=== PATIENT | female | born 2005 | race Caucasian/White ===

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

== ENCOUNTER 2024-06-16 01:21 | Emergency (ER) | payer OTHER, SELFPAY ==
[2024-06-16 01:26] VITALS: BP 136/86; PULSE 79; RESP 16; TEMP 36.9; O2SAT 98; BMI 23.3
--- NOTE | 2024-06-16 01:36 | CRLHL7_ITS ---
For Patients: As a result of the Century Cures Act, medical imaging exams and procedure reports are released immediately into your electronic medical record. You may view this report before your referring provider. If you have questions, please contact your health care provider. INDICATION: Sternal chest pain. TECHNIQUE: Chest 2 views. COMPARISON: None. FINDINGS: Cardiovascular and mediastinum: Heart size and vasculature are normal in caliber and appearance. Lungs and pleural spaces: No focal consolidation, pleural effusion, or pneumothorax. Bones and soft tissues: Unremarkable for age. IMPRESSION: No evidence of an acute pulmonary process. Dictated by Nicolas Bustos MD @ 06/16/2024 2:05:16 AM (Electronically Signed)
--- OUTSIDE RECORDS SUMMARY | 2024-06-16 01:49 | XMS_ITS | Clinical Summary ---
Author Organization [facility] [facility] [place] [facility] [place] [place]ili[place] [address] Care Team Providers Care School Examiner Name Role Phone [facility] Primary Care Provider Allergies No known active allergies Active Problems Problem Noted Date Diagnosed Date BRBPR (bright red blood per rectum) 04/12/2024 Encounters Date Type Department Care Team Description 04/18/2024 8:00 AM PDT - 04/18/2024 8:30 AM PDT Surgery [place] [address] [place] [address] Abraham Leggett MD GI COLONOSCOPY(open access) 04/18/2024 8:00 AM PDT Hospital Encounter [place] [address] [place] [address] Abraham Leggett MD BRBPR (bright red blood per rectum) 04/18/2024 Collections Director Only COUNTS INCLUDE 234 BEDS AT THE [facility] [address] [place] [address] Abraham Leggett MD 04/13/2024 Refill COUNTS INCLUDE 234 BEDS AT THE [facility] [address] [place] [address] Delvis Gabriel MD, PhD Refill Request 04/12/2024 Telephone COUNTS INCLUDE 234 BEDS AT THE [facility] [address] [place] [address] Nurse, Gi, can tester/authorizat ion 04/11/2024 Transcribe Orders External [facility] Navdeep Reyes MD Hemorrhage of rectum and anus (Primary Dx) 04/09/2024 Telephone [facility] [address] [place] [address] Nurse, POOJA Juarezcan tester/authorizat ion from Last 3 Months Social History Tobacco Use Types Packs/Day Years Used Date Smoking Tobacco: Never Assessed Drug Use (DAST) Answer Date Recorded DAST Total Score Not on file 04/18/2024 Sex and Gender Information Value Date Recorded Sex Assigned at Not on file Gender Identity Not on file Sexual Orientation Not on file Plan of Treatment Health Maintenance Due Date Last Done Comments Chlamydia Screen 2004 HPV Vaccine <= 26 Yrs (3 - 2-dose series) 04/08/2016 01/09/2016, 10/09/2015 Minor 2019 Cholesterol Screening (Ages: 9-11 & 17-21) 2021 Adult 2022 Hepatitis C Screening 2022 [place] HIV Screening 2022 Influenza (#1) 2024 06/24/2022, 06/06, 06/19/2020, Additional history exists COVID-19 Vaccine ( season) 2024 01/16/2021, 12/26/2020 Tetanus (6 - Td or Tdap) 10/09/2025 016, 10/17/2008, 04/02/2005, Additional history exists Shingles Vaccine (1 of 2) 2054 10/17/2008, Pneumococcal Vaccine Aged Out 04/02/2005, 01/29/2005, 2004 No longer eligible based on patient's age to complete this topic Hep A Vaccine Series Completed 11/02/2006, 04/01/20 06 Polio Vaccine Completed 10/17/2008, 03/06, 01/29/2005, Additional history exists Meningococcal MCV4 Vaccine Aged Out 10/09/2015 N o longer eligible based on patient's age to complete this topic Procedures Procedure Name Priority Date/Time Associated Diagnosis Comments COLONOSCOPY PROCEDURE 04/18/2024 8:20 AM PDT from Last 3 Months Results * Colonoscopy Procedure (04/18/2024 8:20 AM PDT) Narrative Transcriptions Abraham Leggett MD - 04/18/2024 8:20 AM PDT [facility] Gastroenterology/Special Procedures Patient Name:nacho webb Date of :2005 Record Number:[id number] Date of Procedure:04/18/2024 Referring Physician: Endoscopist:Abraham Urbano. Endoscopist: Nurse:Ammon Ashley PROCEDURE PERFORMED Colonoscopy INDICATIONS FOR EXAMINATION rectal bleeding Instruments: 314 Medications:MAC Propofol The attending physician, Dr. Leggett, was present for the entireexamination. Procedure Technique: Patient's medications, allergies, past medical,surgical, social and family histories were reviewed and updated asappropriate. A discussion of informed consent was had with the patientand/or the patient's family prior to the procedure, including sedation. The alternatives, benefits and risks ofthe procedure including but not limited to pain, perforation, hemorrhage,infection, adverse drug reaction, missed lesion/incomplete procedure, andaspiration were discussed Description of Procedure: Based on the pre-procedure assessment, including review of the patient'smedical history, medications, allergies, and review of systems, thepatient had been deemed to be an appropriate candidate for sedation; thepatient was therefore sedated with the medications listed. The patient was monitored continuously with pulseoximetry, blood pressure monitoring, and direct observations. After digital rectal examination, the colonoscope 314 was inserted intothe rectum and advanced under direct vision to the level of the terminalileum. The quality of the colonic preparation was Excellent. A carefulinspection was made as the colonoscope was withdrawn. Findings and interventions are describedbelow. Extent of Exam: terminal ileum. Biopsy Obtained: No. Complications: . Estimated Blood Loss: Minimal. Need for Future Anesthesia: MAC. Cecal Withdrawal Time: Total Procedure Time: FINDINGS -Normal appearing colonic mucosa -Normal terminal ileum -Small internal hemorrhoids ENDOSCOPIC DIAGNOSIS -Small internal hemorrhoids -Normal appearing colonic mucosa -Normal terminal ileum RECOMMENDATIONS -Start miralax daily for constipation -use anusol topical twice daily to anal area for 7 days Signature: Abraham Leggett MD([id number]) Note: The final official report is in the [facility]. This electronic signature authenticates all electronic and/or handwrittendocumentation, including orders, generated by the signer during theepisode of care contained in this record. 04/18/2024 08:20:56 AM By Oleksandr Rosario MD Abraham Leggett MD GASTROENTEROLOGY from Last 3 Months Care Teams School Examiner Relationship Specialty Start Date End Date [facility] [id number] [place] [address] PCP - General 09/05/18
--- OUTSIDE RECORDS SUMMARY | 2024-06-16 01:49 | XMS_ITS | Encounter Summary ---
Author Organization [facility] ([place] / [place] / [place]) [place] [address] Care Team Providers Care Clinical Nutritionist Name Role Phone Terrie [facility] Primary Care Provider Reason for Visit * Reason Onset Date Comments Refill Request 04/17/2024 Encounter Details Date Type Department Care Team (Late st Contact Info) Description 04/13/2024 Refill [facility] [address] [place], [place] [address] Delvis Gabriel MD, PhD [address] [place], [place] [id number] Refill Request Social History Tobacco Use Types Packs/Day Years Used Date Smoking Tobacco: Never Assessed Drug Use (DAST) Answer Date Recorded DAST Total Score Not on file 04/18/2024 Sex and Gender Information Value Date Recorded Sex Assigned at Not on file Gender Identity Not on file Sexual Orientation Not on file documented as of this encounter Miscellaneous Notes * Telephone Encounter - Em Hawley - 04/17/2024 5:03 PM PDT Called patient to reschedule procedure to new location in [place] due to MD changes. Patient accepted 7am check in at [place]. Prep instructions for the patients upcoming procedure have been sent via email. No further assistance required at this time. Email was verified. * Telephone Encounter - Leisa Mansfield, COMMUNICATIONS SUPERVISOR - 04/13/2024 1:18 PM PDT Is the patient requesting a low volume prep yes Moviprep pended and routed for provider review and approval/denial * Telephone Encounter - Christina Watson - 04/13/2024 12:11 PM PDT Reviewed allergies listed in banner with the patient: yes Do you have any additional known allergies to over the counter or prescription medications? No Are you allergic to latex? No Patient is scheduled on 04/18/[address] Gabriel. Please pend order for bowel prep and route to provider for review. Is the patient requesting a low volume prep yes - Patient's preferred pharmacy: [id number] [id number] [facility] [id number] [place] [phone] documented in this encounter Plan of Treatment Not on file documented as of this encounter Visit Diagnoses Diagnosis BRBPR (bright red blood per rectum)- Primary Hemorrhage of rectum and anus documented in this encounter Care Teams Clinical Nutritionist Relationship Specialty Start Date End Date [facility] [address] [place], [place] [id number] PCP - General 09/05/18 documented as of this encounter
--- OUTSIDE RECORDS SUMMARY | 2024-06-16 01:49 | XMS_ITS | Encounter Summary ---
Author Organization [facility] ([place] / [place] / [place]) [place] Affili[place] [address] Care Team Providers Care Substation Design Draftsperson Name Role Phone Boot[facility] Primary Care Provider Encounter Details Date Type Department Care Team (Late st Contact Info) Description 04/18/2024 Advertising Specialist Only [facility] [address] [place] [address] Abraham Leggett MD [address] # [id number] [place] [phone] Social History Tobacco Use Types Packs/Day Years Used Date Smoking Tobacco: Never Assessed Drug Use (DAST) Answer Date Recorded DAST Total Score Not on file 04/18/2024 Sex and Gender Information Value Date Recorded Sex Assigned at Not on file Gender Identity Not on file Sexual Orientation Not on file documented as of this encounter Procedure Notes * Abraham Leggett MD - 04/18/2024 8:20 AM PDTAssociated Order(s): COLONOSCOPY PROCEDURE [facility] Gastroenterology/Special Procedures Patient Name:nacho webb Date of :2005 Record Number:[id number] Date of Procedure:04/18/2024 Referring Physician: Endoscopist:Abraham Urbano. Endoscopist: Nurse:Ammon Ashley PROCEDURE PERFORMED Colonoscopy INDICATIONS FOR EXAMINATION rectal bleeding Instruments: 314 Medications:MAC Propofol The attending physician, Dr. Leggett, was present for the entire examination. Procedure Technique: Patient's medications, allergies, past medical, surgical, social and family histories were reviewed and updated as appropriate. A discussion of informed consent was had with the patient and/or the patient's family prior to the procedure, including sedation. The alternatives, benefits and risks of the procedure including but not limited to pain, perforation, hemorrhage, infection, adverse drug reaction, missed lesion/incomplete procedure, and aspiration were discussed Description of Procedure: Based on the pre-procedure assessment, including review of the patient's medical history, medications, allergies, and review of systems, the patient had been deemed to be an appropriate candidate forsedation; the patient was therefore sedated with the medications listed. The patient was monitored continuously with pulse oximetry, blood pressure monitoring, and direct observations. After digital rectal examination, the colonoscope 314 was inserted into the rectum and advanced under direct vision to the level of the terminal ileum. The quality of the colonic preparation was Excellent. A careful inspection was made as the colonoscope was withdrawn. Findings and interventions are described below. Extent of Exam: terminal ileum. Biopsy Obtained: [...] area for 7 days Signature: Abraham Leggett MD ([id number]) Note: The final official report is in the [facility] medical record. This electronic signature authenticates all electronic and/or handwritten documentation, including orders, generated by the signer during the episode of care contained in this record. 04/18/2024 08:20:56 AM By Oleksandr Rosario MD documented in this encounter Plan of Treatment Not on file documented as of this encounter Procedures Procedure Name Priority Date/Time Associated Diagnosis Comments COLONOSCOPY PROCEDURE 04/18/2024 8:20 AM PDT documented in this encounter Results * Colonoscopy Procedure (04/18/2024 8:20 AM PDT) Narrative Transcriptions Abraham Leggett MD - 04/18/2024 8:20 AM PDT [facility] Gastroenterology/Special Procedures Patient Name:nacho webb Date of :2005 Record Number:[id number] Date of Procedure:04/18/2024 Referring Physician: Endoscopist:Abraham Urbano. [...] area for 7 days Signature: Abraham Leggett MD([id number]) Note: The final official [facility]. This electronic signature authenticates all electronic and/or handwrittendocumentation, including orders, generated by the signer during theepisode of care contained in this record. 04/18/2024 08:20:56 AM By Oleksandr Rosario MD Abraham Leggett MD GASTROENTEROLOGY documented in this encounter Visit Diagnoses Not on filedocumented in this encounter Care Teams Substation Design Draftsperson Relationship Specialty Start Date End [facility] [address] [place] [address] PCP - General 09/05/18 documented as of this encounter
--- OUTSIDE RECORDS SUMMARY | 2024-06-16 01:49 | XMS_ITS | Encounter Summary ---
Author Organization [facility] ([place] / [place] / [place]) [place] [address] Care Team Providers Care Mineral Ore Processing Labourer Name Role Phone Terrie [facility] Primary Care Provider Reason for Visit * Auth/Cert (Routine) Specialty Diagnoses / Procedures Referred By Heraclio t Referred To Contact Diagnoses BRBPR (bright red blood per rectum) blood per rectum Procedures PB COLONOSCOPY,DIAGNOSTIC PB COLONOSCOPY,BIOPSY PB ANESTHESIA LOWER INTST ENDOSCOPIC PX NOS GI COLONOSCOPY [facility] [address] [place] [address] Phone: [phone] Referral ID Status Reason Start Date Expiration Date Visits Re quested Visits Authorized [id number] 1 1 Encounter Details Date Type Department Care Team (Late st Contact Info) Description 04/18/2024 8:00 AM PDT - 04/18/2024 8:30 AM PDT Surgery [facility] [address] [place] [address], [address] [place] [address] Abraham Leggett MD [address] # [id number] [place] [address] GI COLONOSCOPY(open access) Social History Tobacco Use Types Packs/Day Years Used Date Smoking Tobacco: Never Assessed Drug Use (DAST) Answer Date Recorded DAST Total Score Not on file 04/18/2024 Sex and Gender Information Value Date Recorded Sex Assigned at Not on file Gender Identity Not on file Sexual Orientation Not on file documented as of this encounter H&P Notes * Abraham Leggett MD - 04/18/2024 6:54 AM PDT History and Physical Indication for procedure: rectal bleeding No past medical history on file. No past surgical history on file. No Known Allergies Cannot display prior to admission medications because the patient has not been admitted in this contact. There were no vitals taken for this visit. General: Well developed, well nourished, in no apparent distress. Lungs: Clear breath sounds bilaterally. CV: Normal rate, regular rhythm, no significant murmur present. Abdomen: Soft, nontender, normal bowel sounds present. ASA Score: 1 Airway (Mallimpati) Score: Class I - Soft palate, uvula, fauces, and pillars are visible. Assessment and Plan Proceed to planned procedure. The patient has consented to the procedure, which will be done with sedation. I have assessed the patient's status immediately prior to this procedure. I have discussed pain management needs and options for the patient with the patient or caregiver. The patient agrees to be full code for the duration of the procedure. Sedation options, risks, and plans have been discussed with the patient or caregiver. Questions were answered. The patient or caregiver agrees to proceed as planned. Abraham Leggett documented in this encounter Plan of Treatment Not on file documented as of this encounter Visit Diagnoses Diagnosis BRBPR (bright red blood per rectum)- Primary Hemorrhage of rectum and anus BRBPR (bright red blood per rectum) Hemorrhage of rectum and anus documented in this encounter Admitting Diagnoses Diagnosis BRBPR (bright red blood per rectum) Hemorrhage of rectum and anus documented in this encounter Care Teams Mineral Ore Processing Labourer Relationship Specialty Start Date End Date [facility] [address] [place] [address] PCP - General 09/05/18 documented as of this encounter
--- OUTSIDE RECORDS SUMMARY | 2024-06-16 01:49 | XMS_ITS | Encounter Summary ---
Author Organization [facility] ([place] / [place] / [place]) [place] [address] Care Team Providers Care Linotypist Name Role Phone Terrie [facility] Primary Care Provider Reason for Visit * Auth/Cert (Routine) Specialty Diagnoses / Procedures Referred By Heraclio t Referred To Contact Diagnoses BRBPR (bright red blood per rectum) blood per rectum Procedures PB COLONOSCOPY,DIAGNOSTIC PB COLONOSCOPY,BIOPSY PB ANESTHESIA LOWER INTST ENDOSCOPIC PX NOS GI COLONOSCOPY [facility] [address] [place] [address] Phone: [phone] Referral ID Status Reason Start Date Expiration Date Visits Re quested Visits Authorized [id number] 1 1 Encounter Details Date Type Department Care Team (Latest Contact Info) Description 04/18/2024 8:00 AM PDT Hospital Encounter [address], [address] [place] [address] Abraham Leggett MD [address] # [id number] [place] [phone] BRBPR (bright red blood per rectum) Social History Tobacco Use Types Packs/Day Years [...] anus documented in this encounter Care Teams Linotypist Relationship Specialty Start Date End Date [place] [address] [place] [address] PCP - General 09/05/18 documented as of this encounter
--- OUTSIDE RECORDS SUMMARY | 2024-06-16 01:50 | XMS_ITS | Encounter Summary ---
Author Organization [facility] ([place] / [place] / [place]) [place] [address] Care Team Providers Care Professor Of Theater Name Role Phone [facility] Primary Care Provider Reason for Referral * Physician (Routine) - Authorized Specialty Diagnoses / Procedures Referred By Heraclio duckworth Referred To Contact GASTRO Diagnoses Hemorrhage of rectum and anus Procedures PB OFFICE/OUTPT VISIT,KEITH ANDRADE Hung T, [place] [address] [facility] [address] [place] [address] Referral ID Status Reason Start Date Expiration Date Visits Requested Visits Authorized [id number] Authorized Consult W/ Recommendation 04/11/2024 04/11/2025 1 1 Question Answer Indications: Clinic consult Related to a recent hospital discharge? (If Yes, Change status to Stat) No Appointment time frame: 1st Available Colon Screening: No Appointment for: General GI Encounter Details Date Type Department Care Team (Latest Contact Info) Description 04/11/2024 Transcribe Orders External [facility] [place] [address] Hemorrhage of rectum and anus (Primary Dx) Social History Tobacco Use Types Packs/Day Years Used Date Smoking Tobacco: Never Assessed Drug Use (DAST) Answer Date Recorded DAST Total Score Not on file 04/12/2024 Sex and Gender Information Value Date Recorded Sex Assigned at Not on file Gender Identity Not on file Sexual Orientation Not on file documented as of this encounter Plan of Treatment Scheduled Referrals Name Type Priority Associated Diagnoses Orde r Schedule Consult/Referral to Gastroenterology Referral Routine Hemorrhage of rectum and anus Ordered: 04/11/2024 documented as of this encounter Visit Diagnoses Diagnosis Hemorrhage of rectum and anus- Primary documented in this encounter Care Teams Professor Of Theater Relationship Specialty Start Date End Date Terrie [facility] [address] [place] [address] PCP - General 09/05/18 documented as of this encounter
--- OUTSIDE RECORDS SUMMARY | 2024-06-16 01:50 | XMS_ITS | Encounter Summary ---
Author Organization [facility] ([place] / [place] / [place]) [place] [address] Care Team Providers Care Animal Geneticist Name Role Phone Terrie [facility] Primary Care Provider Reason for Visit * Reason Onset Date Comments Referral/authorization 04/12/2024 Encounter Details Date Type Department Care Team (Late st Contact Info) Description 04/12/[address] [place] [address] Nurse, Gi, auction assistant/authorization Social History Tobacco Use Types Packs/Day Years Used Date Smoking Tobacco: Never Assessed Drug Use (DAST) Answer Date Recorded DAST Total Score Not on file 04/12/2024 Sex and Gender Information Value Date Recorded Sex Assigned at Not on file Gender Identity Not on file Sexual Orientation Not on file documented as of this encounter Miscellaneous Notes * Telephone Encounter - Sean Duarte - 04/13/2024 9:27 AM PDT First attempt. Artera message sent. When the patient calls back, please assist with scheduling as triaged. Thank you. * Telephone Encounter - Delvis Gabriel MD, PhD - 04/12/2024 4:58 PM PDT East, [facility], [facility] ([place]), [facility]. Urgent 0-8 weeks. * Telephone Encounter - Brandi Albarado RN - 04/12/2024 3:51 PM PDT Images from the original note were not included. Routing to for review and to advise on scheduling (Colonoscopy w/ MAC pended) Young age Routine external clinic referral from Dr.Hung Reyes for BRBPR 04/11/24 GI Referral (media) * Telephone Encounter - Nia Do - 04/12/2024 3:24 PM PDT Received GI clinical referral on 04/[address] Reyes for Hemorrhage of rectum and anus. Unable to locate diagnosis in [employer]. Please review and advise for scheduling. Thank you. documented in this encounter Plan of Treatment Not on file documented as of this encounter Visit Diagnoses Diagnosis BRBPR (bright red blood per rectum)- Primary Hemorrhage of rectum and anus documented in this encounter Care Teams Animal Geneticist Relationship Specialty Start Date End Date [facility] [address] [place] [address] PCP - General 09/05/18 documented as of this encounter
--- OUTSIDE RECORDS SUMMARY | 2024-06-16 01:50 | XMS_ITS | Continuity of Care Document ---
Author Name [facility] Organization [facility] Care Team Providers Care Teller Name Role Phone [facility] Unavailable Unavailable Problems Combined list of problems from Department of Defense and Veterans Affairs facilities. It does not include entries that were removed or entered in error. Problem Status Onset Date Problem Type Date of Resolution Comments Source Encounter for insertion of intrauterine contraceptive device Active 04/30/2024 Diagnosis 0232C-[facility] Left Ankle pain Active 03/05/2019 Condition Amb ulatory Pharmacy Pain in right knee Active 08/10/2018 Condition DoD Acne Active Condition Ambulatory Pharmacy Blood per rectum Active Condition Ambul [facility]ory Pharmacy COVID-19 Active Condition DoD Rheumatoid arthritis Active Condition Ambulatory Pharmacy Convergence insufficiency Active Condition DoD Medications Combined list of outpatient medications from Department of Defense and Veterans Affairs facilities.Medications provided include 1) outpatient medications from the last 15 months, and 2) patient-reported medications. Medication Details Route Status Patient Instructions Prescription Expires Prescription Number Last Dispense Date Ordering Provider Order Date Order Qty Source Afrin 0.05% nasal spray 2 spray(s) , Nostril- Both, BID, Do not use for longer than 72 hours, # 15 mL, 0 total refill(s ), Acute, 2 spray(s) Nostril- Both BID,Inst r:Do not use for longer than 72 hours, Pharmacy : [facility] Nostri l-Both (into the nose) Complet ed 01/22/2022 15.0 0232C[facility] Claritin-D 24 Hour oral tablet, extended release 1 tab(s), Oral, Daily, # 15 tab(s), 0 total refill(s ), Acute, 1 tab(s) Oral Daily, Pharmacy : [facility] Oral (given by mouth) Complet ed 01/22/2022 15.0 0232C[facility] clindamycin phosphate-b enzoyl peroxide 1.2%-5% topical gel clindamy aliyah phosphat e-benzoy l peroxide 1.2%-5% topical gel Start Date: 05/19/20 Stop Date: 02/25/23 Status: Complete d Complet ed 02/25/2023 No Facilit y Access clindamycin -benzoyl peroxide 1.2%-5% with emollients topical kit See Instruct ions, Topical Daily, # 1 EA, 3 total refill(s ), Maintena nce, Topical Daily, Pharmacy : [facility] Complet ed 08/12/2023 1.0 0232[facility] FOLIC ACID (U/D) 1 MG ORAL TAB Active 11/23/2024 [id number] 4 [facility] 1 mg oral tablet 1 tab(s), Oral, Daily, # 90 tab(s), 3 total refill(s ), Maintena nce, 1 tab(s) Oral Daily, Pharmacy : [facility] Oral (given by mouth) Ordered 90.0 0232C[facility] folic acid 1 mg oral tablet folic acid 1 mg oral tablet Start Date: 09/13/19 Stop Date: 07/20/21 Status: Complete d Complet ed 07/20/2021 No Facilit y Access folic acid 1 mg tablet 1 mg, Oral, Daily, # 90 EA, 0 total refill(s ), Hard Stop Oral (given by mouth) Discont inued 04/30/2024 90.0 Ambulat ory Pharmac y ibuprofen 600 mg oral tablet 1 tab(s), Oral, every 6 hr, # 40 tab(s), 0 total refill(s ), Acute, 08/10/21 2:00:00 AM THERMOSTAT MAKER, 1 tab(s) Oral every 6 hr, Pharmacy : [facility] Oral (given by mouth) Complet ed 08/10/2021 40.0 0029C-N [facility] Kurvelo 0.15 mg-30 mcg oral tablet 1 tab(s), Oral, Daily, # 168 tab(s), 1 total refill(s ), Maintena nce, 1 tab(s) Oral Daily, Pharmacy : [facility] Oral (given by mouth) Discont inued 04/30/2024 168.0 0232C[facility] leucovorin 5 mg tablet See Rx Instruct ions, # 10 EA, 4 total refill(s ), Hard Stop Complet ed 10/07/2023 10.0 Ambulat ory Pharmac y metHOTREXat e (U/D) 2.5 MG ORAL TAB Do not drink alcohol. Avoid exposure to sun.Take or use exactly as directed .Obtain advice for OTCs.Do not take if . Active 08/01/2024 [id number] 2023 32 [facility] methotrexat e 2.5 mg oral tablet methotre xate 2.5 mg oral tablet Start Date: 12/20/19 Stop Date: 02/25/21 Status: Complete d Complet ed 02/25/2021 No Facilit y Access methotrexat e 2.5 mg tablet See Instruct ions, # 32 EA, 8 total refill(s ), Hard Stop Discont inued 04/30/2024 32.0 Ambulat ory Pharmac y methotrexat e 2.5 mg tablet See Instruct ions, # 96 EA, 0 total refill(s ), Hard Stop, ELSIE Complet ed 05/19/2024 96.0 Ambulat ory Pharmac y Mucinex 600 mg oral tablet, extended release 1 tab(s), Oral, every 12 hr, # 20 tab(s), 0 total refill(s ), Acute, 01/22/22 2:00:00 AM CDT, 1 tab(s) Oral every 12 hr, Pharmacy : [facility] Oral (given by mouth) Complet ed 01/22/2022 20.0 0232[facility] oxyCODONE 5 mg oral tablet 1 tab(s), Oral, every 6 hr, PRN pain, # 10 tab(s), 0 total refill(s ), Acute, 08/03/21 2:00:00 AM THERMOSTAT MAKER, 1 tab(s) Oral every 6 hr,PRN:a s needed for pain, Pharmacy : [facility] Oral (given by mouth) Complet ed 08/03/2021 10.0 0029C-N [facility] Peridex 0.12% mucous membrane liquid 15 mL, Oral, BID, swish and spit; do not swallow, # 473 mL, 0 total refill(s ), Maintena nce, 15 mL Oral BID,Inst r:swish and spit; do not swallow, Pharmacy : [facility] Oral (given by mouth) Complet ed 03/09/2022 473.0 0029C-N [facility] predniSONE 50 mg oral tablet 1 tab(s), Oral, Daily, # 5 tab(s), 0 total refill(s ), Maintena nce, 1 tab(s) Oral Daily,x5 days, Pharmacy : [facility] Oral (given by mouth) Complet ed 03/09/2022 5.0 0029A-[facility] tretinoin 0.025% topical cream tretinoi n 0.025% topical cream Start Date: 06/26/20 Stop Date: 02/25/23 Status: Complete d Complet ed 02/25/2023 No Facilit y Access Tylenol 325 mg oral tablet 2 tab(s), Oral, every 6 hr, PRN pain or fever, # 60 tab(s), 0 total refill(s ), Acute, 08/10/21 2:00:00 AM THERMOSTAT MAKER, 2 tab(s) Oral every 6 hr,PRN:a s needed for pain or fever, Pharmacy : [facility] Oral (given by mouth) Complet ed 08/10/2021 60.0 0029C-N [facility] Allergies, Adverse Reactions, Alerts Combined list of allergies from Department of Defense and Veterans Affairs facilities. It does not include entries that were removed or entered in error. Substance Category Reaction Severity Reaction type Status Date Reported Comments Source No Known Allergies Drug allergy (disorder) active 02/26/2023 DoD Immunizations Combined list of available immunizations from the Department of Defense and Veterans Affairs facilities. 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 Contractor Status Comments Source meningococcal conjugate vaccine 2020 RAINER Graves speedy, right (delt oid) [id number] sanofi pasteur complet ed meningoco ccal conjugate vaccine 02/26/21 [facility] Human Papillomaviru s,quadrivalen t(HPV4) 2015 zzLef t Arm [id number] [employer] Inc complet ed Human Papilloma virus,amairani drivalent (HPV4) 01/09/16 Given Ambulat ory Pharmac y human papilloma virus vaccine, quadrivalent 2 2015 Unknown, Provider [id number] Merck (MSD) complet ed human papilloma virus vaccine, quadrival ent DoD influenza, injectable, quadrivalent- pf 2015 zzLef t Arm [id number] GlaxoSmithKli ne complet ed influenza , injectabl e, quadrival ent-pf 10/09/15 Given Ambulat ory Pharmac y tetanus, diphtheria, acellular pertu is 2015 zzRig ht Arm [id number] GlaxoSmithK[employer] ne complet ed tetanus, diphtheri a, acellular pertussis 10/09/15 Given Ambulat ory Pharmac y meningococcal A,C,Y,W-135 (MCV4P) 2015 zzLef t Arm [id number] sanofi pasteur complet ed meningoco ccal A,C,Y,W-1 35 (MCV4P) 10/09/15 Given Ambulat ory Pharmac y Human Papillomaviru s,quadrivalen t(HPV4) 2015 zzRig ht Arm [id number] Merck [employer] Company Inc complet ed Human Papilloma virus,amairani drivalent (HPV4) 10/09/15 Given Ambulat ory Pharmac y human papilloma virus vaccine, quadrivalent 1 2015 Unknown, Provider [id number] Merck (MSD) complet ed human papilloma virus vaccine, quadrival ent DoD meningococcal polysaccharid e (groups A, C, Y and W-135) diphtheria toxoid conjugate vaccine (MCV4P) 1 2015 Unknown, Provider [id number] Sanofi Pasteur (PMC) complet ed meningoco ccal polysacch aride (groups A, C, Y and W-135) diphtheri a toxoid conjugate vaccine (MCV4P) DoD tetanus toxoid, reduced diphtheria toxoid, and acellular pertu is vaccine, adsorbed 1 2015 Unknown, Provider [id number] [facility] ([facility]) complet ed tetanus toxoid, reduced diphtheri a toxoid, and acellular pertussis vaccine, adsorbed DoD Influenza, injectable, quadrivalent, preservative free 1 2015 Unknown, Provider [id number] [address] [place] [address] (ELLIOTT) complet ed Influenza , injectabl e, quadrival ent, preservat alvaro free DoD DTaP 2008 Transcr ibed 20 complet ed DTaP 10/17/08 Given Ambulat ory Pharmac y poliovirus vaccine, inactivated 2008 Transcr ibed 10 complet ed polioviru s vaccine, inactivat ed 10/17/08 Given Ambulat ory Pharmac y measles/mumps /rubella virus vaccine 2008 Transcr ibed 03 complet ed measles/m umps/rube lla virus vaccine 10/17/08 Given Ambulat ory Pharmac y varicella virus vaccine 2008 GINA 21 complet ed varicella virus vaccine 10/17/08 Recorded 0232C-N [facility] measles, mumps and rubella virus vaccine 2 2008 Unknown, Provider Transcr ibed 03 Transcribed (TRS) complet ed measles, mumps and rubella virus vaccine DoD poliovirus vaccine, inactivated 4 2008 Unknown, Provider Transcr ibed 10 Transcribed (TRS) complet ed polioviru s vaccine, inactivat ed DoD diphtheria, tetanus toxoids and acellular pertu is vaccine 4 2008 Unknown, Provider Transcr ibed 20 Transcribed (TRS) complet ed diphtheri a, tetanus toxoids and acellular pertussis vaccine DoD Hep A, ped/adol, 2 dose 2006 Transcr ibed 83 complet ed Hep A, ped/adol, 2 dose 11/02/06 Given Ambulat ory Pharmac y hepatitis A vaccine, pediatric/ado lescent dosage, 2 dose schedule 2 2006 Unknown, Provider Transcr ibed 83 Transcribed (TRS) complet ed hepatitis A vaccine, pediatric /adolesce nt dosage, 2 dose schedule DoD Hep A, ped/adol, 2 dose 2005 Transcr ibed 83 complet ed Hep A, ped/adol, 2 dose 04/01/06 Given Ambulat ory Pharmac y hepatitis A vaccine, pediatric/ado lescent dosage, 2 dose schedule 1 2005 Unknown, Provider Transcr ibed 83 Transcribed (TRS) complet ed hepatitis A vaccine, pediatric /adolesce nt dosage, 2 dose schedule DoD measles/mumps /rubella virus vaccine 2005 Transcr ibed 03 complet ed measles/m umps/rube lla virus vaccine 10/05/05 Given Ambulat ory Pharmac y varicella virus vaccine 2005 Transcr ibed 21 complet ed varicella virus vaccine 10/05/05 Given Ambulat ory Pharmac y measles, mumps and rubella virus vaccine 1 2005 Unknown, Provider Transcr ibed 03 Transcribed (TRS) complet ed measles, mumps and rubella virus vaccine DoD varicella virus vaccine 1 2005 Unknown, Provider Transcr ibed 21 Transcribed (TRS) complet ed varicella virus vaccine DoD hepatitis B vaccine, unspecified formul 2004 Transcr ibed 45 complet ed hepatitis B vaccine, unspecifi ed formul 04/02/05 Given Ambulat ory Pharmac y DTaP 2004 Transcr ibed 20 complet ed DTaP 04/02/05 Given Ambulat ory Pharmac y Hib, unspecified formulation 2004 Transcr ibed 17 complet ed Hib, unspecifi ed formulati on 04/02/05 Given Ambulat ory Pharmac y poliovirus vaccine, inactivated 2004 Transcr ibed 10 complet ed polioviru s vaccine, inactivat ed 04/02/05 Given Ambulat ory Pharmac y pneumococcal 13-valent conjugate (PCV13) 2004 Transcr ibed 133 complet ed pneumococ maria eugenia 13-valent conjugate (PCV13) 04/02/05 Given Ambulat ory Pharmac y poliovirus vaccine, inactivated 3 2004 Unknown, Provider Transcr ibed 10 Transcribed (TRS) complet ed polioviru s vaccine, inactivat ed DoD Haemophilus influenzae type b vaccine, conjugate unspecified formulation 3 2004 Unknown, Provider Transcr ibed 17 Transcribed (TRS) complet ed Haemophil us influenza e type b vaccine, conjugate unspecifi ed formulati on DoD diphtheria, tetanus toxoids and acellular pertu is vaccine 3 2004 Unknown, Provider Transcr ibed 20 Transcribed (TRS) complet ed diphtheri a, tetanus toxoids and acellular pertussis vaccine DoD hepatitis B vaccine, unspecified formulation 3 2004 Unknown, Provider Transcr ibed 45 Transcribed (TRS) complet ed hepatitis B vaccine, unspecifi ed formulati on DoD pneumococcal conjugate vaccine, 13 valent 3 2004 Unknown, Provider Transcr ibed 133 Transcribed (TRS) complet ed pneumococ maria eugenia conjugate vaccine, 13 valent DoD DTaP 2004 Transcr ibed 20 complet ed DTaP 01/29/05 Given Ambulat ory Pharmac y Hib, unspecified formulation 2004 Transcr ibed 17 complet ed Hib, unspecifi ed formulati on 01/29/05 Given Ambulat ory Pharmac y poliovirus vaccine, inactivated 2004 Transcr ibed 10 complet ed polioviru s vaccine, inactivat ed 01/29/05 Given Ambulat ory Pharmac y pneumococcal 13-valent conjugate (PCV13) 2004 Transcr ibed 133 complet ed pneumococ maria eugenia 13-valent conjugate (PCV13) 01/29/05 Given Ambulat ory Pharmac y poliovirus vaccine, inactivated 2 2004 Unknown, Provider Transcr ibed 10 Transcribed (TRS) complet ed polioviru s vaccine, inactivat ed DoD Haemophilus influenzae type b vaccine, conjugate unspecified formulation 2 2004 Unknown, Provider Transcr ibed 17 Transcribed (TRS) complet ed Haemophil us influenza e type b vaccine, conjugate unspecifi ed formulati on DoD diphtheria, tetanus toxoids and acellular pertu is vaccine 2 2004 Unknown, Provider Transcr ibed 20 Transcribed (TRS) complet ed diphtheri a, tetanus toxoids and acellular pertussis vaccine DoD pneumococcal conjugate vaccine, 13 valent 2 2004 Unknown, Provider Transcr ibed 133 Transcribed (TRS) complet ed pneumococ maria eugenia conjugate vaccine, 13 valent DoD DTaP 2004 Transcr ibed 20 complet ed DTaP 04 Given Ambulat ory Pharmac y Hib, unspecified formulation 2004 Transcr ibed 17 complet ed Hib, unspecifi ed formulati on 04 Given Ambulat ory Pharmac y poliovirus vaccine, inactivated 2004 Transcr ibed 10 complet ed polioviru s vaccine, inactivat ed 04 Given Ambulat ory Pharmac y pneumococcal 13-valent conjugate (PCV13) 2004 Transcr ibed 133 complet ed pneumococ maria eugenia 13-valent conjugate (PCV13) 04 Given Ambulat ory Pharmac y poliovirus vaccine, inactivated 1 2004 Unknown, Provider Transcr ibed 10 Transcribed (TRS) complet ed polioviru s vaccine, inactivat ed DoD Haemophilus influenzae type b vaccine, conjugate unspecified formulation 1 2004 Unknown, Provider Transcr ibed 17 Transcribed (TRS) complet ed Haemophil us influenza e type b vaccine, conjugate unspecifi ed formulati on DoD diphtheria, tetanus toxoids and acellular pertu is vaccine 1 2004 Unknown, Provider Transcr ibed 20 Transcribed (TRS) complet ed diphtheri a, tetanus toxoids and acellular pertussis vaccine DoD pneumococcal conjugate vaccine, 13 valent 1 2004 Unknown, Provider Transcr ibed 133 Transcribed (TRS) complet ed pneumococ maria eugenia conjugate vaccine, 13 valent DoD hepatitis B vaccine, unspecified formul 2004 Transcr ibed 45 complet ed hepatitis B vaccine, unspecifi ed formul 04 Given Ambulat ory Pharmac y hepatitis B vaccine, unspecified formulation 2 2004 Unknown, Provider Transcr ibed 45 Transcribed (TRS) complet ed hepatitis B vaccine, unspecifi ed formulati on DoD hepatitis B vaccine, unspecified formul 2004 Transcr ibed 45 complet ed hepatitis B vaccine, unspecifi ed formul 04 Given Ambulat ory Pharmac y hepatitis B vaccine, unspecified formulation 1 2004 Unknown, Provider Transcr ibed 45 Transcribed (TRS) complet ed hepatitis B vaccine, unspecifi ed formulati on DoD varicella virus vaccine 2 Unknown, Provider Transcr ibed 21 Transcribed (TRS) complet ed varicella virus vaccine DoD Results Combined list of recent chemistry, hematology and other laboratory results from Department of Defense and Veterans Affairs, ranging from 15 months to all on record, depending upon the facility. Order Name Results Value Reference Range Date Interpretation Specimen Comments Source Chemistr y Beta hCG, Urine Qual Negative 10 (04/30/24 8:44 AM) 04/30 N Interpretiv e Data: The first morning urine specimen usually contains the highest concentrati on of HCG and is therefore the best sample. Urine specimens from healthy men and healthy non-pregnan t women should not contain detectable levels of HCG. A Positive result means that HCG levels have been detected that are >25 mIU/ml. A Negative result means that HCG levels were not detected and that levels are below <25 mIU/ml. Ambulator y Pharmacy Chemistr y Beta hCG, Urine Qual Negative 11 (04/26/24 8:22 AM) 04/26 N Interpretiv e Data: The first morning urine specimen usually contains the highest concentrati on of HCG and is therefore the best sample. Urine specimens from healthy men and healthy non-pregnan t women should not contain detectable levels of HCG. A Positive result means that HCG levels have been detected that are >25 mIU/ml. A Negative result means that HCG levels were not detected and that levels are below <25 mIU/ml. [facility] Pharmacy Infectio us Disease Chlamydia Scrn Negative 2 (04/26/24 8:22 AM) 04/26 N Interpretiv e Data: THESE ASSAYS ARE NOT FDA-CLEARED OR VALIDATED BY THE MANUFACTURE R ([employer]) IN LESS THAN 14 YEAR AGE GROUP Amb[facility] y Pharmacy Infectio us Disease GC Scrn Negative 4 (04/26/24 8:22 AM) 04/26 N Interpretiv e Data: The Chlamydia trachomatis and Neisseria gonorrhoeae assays using the Aptima Combo 2 assay kit on Wire System by [employer] are not FDA-approve d for conjunctiva l swab as specimen type. This source is validated and its performance characteris tics have been validated by [facility] IAW CLIA guidelines. [facility] is certified under the CLIA 1988 as qualified to perform high complexity clinical laboratory testing. THESE ASSAYS ARE NOT FDA-CLEARED OR VALIDATED BY THE MANUFACTURE R ([employer]) IN LESS THAN 14 YEAR AGE GROUP [facility] Pharmacy Hematolo gy WBC 4.6 10^3/uL 4.0 - 10.5103 04/03 N [facility] Pharm[facility] Hematolo gy RBC 4.60 10^6/uL 3.90 - 5.38572 04/03 N [facility] Pharmacy Hematolo gy Hemoglobin 12.9 g/dL 12.0 - 15.3 04/03 N [facility] Pharmacy Hematolo gy Hematocrit 41.0 % 36.0 - 46.0 04/03 N Amb[facility] Pharmacy Hematolo gy MCV 89.9 fL 82.0 - 99.0 04/03 N [facility] Pharmacy Hematolo gy MCH 28.3 pg 28.0 - 33.0 04/03 N [facility] Pharmacy Hematolo gy MCHC 31.5 g/dL 32.0 - 36.0 04/03 L [facility] Pharmacy Hematolo gy RDW 14.6 % 11.5 - 14.0 04/03 H [facility] Pharmacy Hematolo gy Platelets 267 10^3/uL 150 - [id number] 04/03 N [facility] Pharmacy Hematolo gy MPV 10.7 fL 6.4 - 10.3 04/03 H [facility] Pharmacy Chemistr y Glucose Lvl 70 mg/dL 75 - 99 04/03 L Interpretiv e Data: Fasting= 75-99 mg/dL, Impaired Fasting Glucose= 100 to 125 mg/dL, Provisional Diagnosis of Diabetes= equal or greater than 126mg/dL Non-fasting = 75-139 mg/dL, Impaired Non-fasting Glucose= 140-199 mg/dL, Provisional Diagnosis of Diabetes= equal or greater than 200 mg/dL [facility] Chemistr y BUN 7.0 mg/dL 6.0 - 20.0 04/03 N [facility] Pharm[facility] Chemistr y Sodium 140 mmol/L 136 - 145 04/03 N [facility] Pharm[facility] Chemistr y Potassium Lvl 4.4 mmol/L 3.5 - 5.1 04/03 N [facility] Pharmacy Chemistr y Chloride 105 mmol/L 98 - 107 04/03 N [facility] Pharm[facility] Chemistr y CO2 25 mmol/L 22 - 32 04/03 N [facility] Pharmacy Chemistr y Creatinine Level 0.7 mg/dL 0.4 - 1.0 04/03 N [facility] Pharmacy Chemistr y Calcium 10.0 mg/dL 8.9 - 10.4 04/03 N [facility] Pharmacy Chemistr y ALT 15 U/L 17 - 63 04/03 L [facility] Pharm[facility] Chemistr y AST 21 U/L 12 - 39 04/03 N [facility] Pharm[facility] Chemistr y Bilirubin Total 0.53 mg/dL 0.15 - 1.00 07/30 /2024 N Interpretiv e Data: For patients undergoing evaluations involving the administrat ion of indocyanine green (ICG), it is recommended that samples are drawn after ICG has been eliminated. [facility] Pharm[facility] Chemistr y Alk Phos 54 U/L 40 - 129 04/03 N [facility] Pharm[facility] Chemistr y Albumin 4.5 g/dL 3.5 - 4.8 04/03 N [facility] Pharmacy Chemistr y Protein Total 8.1 g/dL 6.6 - 8.7 04/03 N [facility] Pharmacy Chemistr y A/G Ratio 1.2 1.5 - 2.0 04/03 L [facility] Pharmacy Chemistr y Globulin 3.6 g/dL 2.0 - 3.5 04/03 H [facility] Pharm[facility] Chemistr y BUN/Creat Ratio 10 10 - 25 04/03 N [facility] Pharmacy Chemistr y AGAP 10 mmol/L 6 - 16 04/03 N [facility] Pharmacy Infectio us Disease Chlamydia Scrn Positive *ABN* (04/03/24 10:07 AM) 04/03 A [facility] Pharm[facility] Infectio us Disease GC Scrn Negative (04/03/24 10:07 AM) 04/03 N [facility] Pharmacy Hematolo gy Neutrophil % Auto 64.2 % 40.0 - 80.0 04/03 N [facility] Pharmacy Hematolo gy Lymphocyte % Auto 27.3 % 15.0 - 45.0 04/03 N [facility] Pharmacy Hematolo gy Monocyte % Auto 5.3 % 4.0 - 11.0 04/03 N [facility] Pharmacy Hematolo gy Eosinophil % Auto 1.5 % 0.0 - 6.0 04/03 N [facility] Pharmacy Hematolo gy Basophil % Auto 1.3 % 0.0 - 4.0 04/03 N [facility] Pharmacy Hematolo gy Imm. Granulocyt e % 0.4 % 0.0 - 1.0 04/03 N [facility] Pharmacy Hematolo gy nRBC % Auto 0.0 % 04/03 N [facility] Pharm[facility] Hematolo gy Neutro Absolute 2.92 10^3/uL 2.00 - 7.94158 04/03 N [facility] Hematolo gy Lymph Absolute 1.24 10^3/uL 1.00 - 4.08504 04/03 N [facility] Pharmacy Hematolo gy Bay Absolute 0.24 10^3/uL 0.20 - 0.42784 04/03 N [facility] Pharmacy Hematolo gy Eos Absolute 0.07 10^3/uL 0.00 - 0.41979 04/03 N [facility] Pharmacy Hematolo gy Baso Absolute 0.06 10^3/uL 0.00 - 0.23557 04/03 N [facility] Pharmacy Hematolo gy Imm. Granulocyt e Absolute 0.02 10^3/uL 0.00 - 0.66342 04/03 N [facility] Pharmacy Hematolo gy nRBC Absolute 0.00 10^3/uL 04/03 N [facility] Pharmacy Chemistr y eGFR CKD EPI 128 mL/min/1 .73_m2 04/03 Interpretiv e Data: Estimated Glomerular Filtration Rate (eGFR) calculated using the 2020 Chronic Kidney Disease-Epi demiology (CKD-EPI) Collaborati on creatinine equation; units of measure are mL/min/1.73 m2. Results are only valid for adults (e18 years) whose serum creatinine is in steady state.? eGFR calculation s are not valid for patients with acute kidney injury and for patients on dialysis. ?Creatinine -based estimates of kidney function may also be inaccurate in patients with reduced creatinine generation due to decreased muscle mass (e.g., malnutritio n, severe hypoalbumin emia, sarcopenia, chronic neuromuscul ar disease, amputations , severe heart failure or liver disease) and in patients with increased creatinine generation due to increased muscle mass (e.g., muscle builders, anabolic steroids) or increased dietary intake. As drug clearance is proportiona l to total GFR and not GFR indexed to body surface area (BSA), in individuals with a BSA substantial ly different than 1.73 m2, drug dosing should be based the reported eGFRvalue de-indexed from BSA by multiplying by the individual s BSA and dividing by 1.73. CKD is diagnosed based on abnormaliti es of kidney structure or function, present for >3 months, with implication s for health and disease. CKD is classified and staged based on cause, eGFR and albuminuria (quantified as urine albumin to creatinine ratio). An eGFR >60 mL/min/1.73 m2 in the absence of increased urine albumin excretion or structural abnormaliti es does not represent CKD.eGFR (mL/min/1.7 3 m2) CKD stage Interpretat ion e90 G1 Normal 60-89 G2 Mild decrease 45-59 G3A Mild to moderate decrease 30-44 G3B Moderate to severe decrease 15-29 G4 Severe decrease <15 G5 Kidney failure [facility] Hematolo gy WBC 5.2 10^3/uL 4.0 - 10.5103 02/25 N [facility] Pharmacy Hematolo gy RBC 4.3 10^6/uL 3.9 - 5.0106 02/25 N [facility] Pharmacy Hematolo gy Hemoglobin 13.2 g/dL 12.0 - 15.3 02/25 N [facility] Pharmacy Hematolo gy Hematocrit 38.9 % 36.0 - 46.0 02/25 N [facility] MCV 90.7 fL 82.0 - 99.0 02/25 N [facility] MCH 30.8 pg 28.0 - 33.0 02/25 N [facility] MCHC 33.9 g/dL 32.0 - 36.0 02/25 N [facility] Platelets 256 10^3/uL 150 - [id number] 02/25 N [facility] RDW CV 13.0 % 11.5 - 14.0 02/25 N [facility] MPV 11.1 fL 6.4 - 10.3 02/25 H [facility] IPF % 2.0 % 1.1 - 6.1 02/25 N [facility] RBC Count.LC 4.28 10^6/uL 02/25 [facility] G-6-PD, Quant.LC 354 [id number] BC 02/25 Result Comment: When decreased, G-6-PD, Quant. values are associated with acute hemolytic anemia when deficient individuals are exposed to oxidative stress, such as with certain medications (e.g., primaquine) , infection, or ingestion of elina beans. Caution: In patients with acute hemolysis (e.g., abnormally low RBC values), testing for G-6-PD may be falsely normal because older erythrocyte s with a higher enzyme deficiency have been hemolyzed. Young erythrocyte s and reticulocyt es have normal or near-normal enzyme activity. Normal values of G-6-PD may be measured for several weeks following a hemolytic event. Performed At: [facility] [address] [place], [place] [id number] Noreen Diggs MD Ph:[phone] [facility] Infect[facility] Disease Chlamydia Scrn Negative 3 (02/25/23 9:51 AM) 02/25 N Interpretiv e Data: THESE ASSAYS ARE NOT FDA-CLEARED OR VALIDATED BY THE MANUFACTURE R ([employer]) IN LESS THAN 14 YEAR AGE GROUP [facility] Disease GC Scrn Negative 5 (02/25/23 9:51 AM) 02/25 N Interpretiv e Data: The Chlamydia trachomatis and Neisseria gonorrhoeae assays using the Aptima Combo 2 assay kit on Wire System by [employer] are not FDA-approve d for conjunctiva l swab as specimen type. This source is validated and its performance characteris tics have been validated by [facility] IAW CLIA guidelines. [facility] is certified under the CLIA 1988 as qualified to perform high complexity clinical laboratory testing. THESE ASSAYS ARE NOT FDA-CLEARED OR VALIDATED BY THE MANUFACTURE R ([employer]) IN LESS THAN 14 YEAR AGE GROUP [facility] Neutrophil % Auto 67.1 % 40.0 - 80.0 02/25 N [facility] Neutro Absolute 3.48 10^3/uL 2.00 - 7.76740 02/25 N [facility] Lymphocyte % Auto 22.7 % 15.0 - 45.0 02/25 N [facility] Lymph Absolute 1.18 10^3/uL 1.00 - 4.57262 02/25 N [facility] Monocyte % Auto 8.1 % 4.0 - 11.0 02/25 N [facility] Hemat[facility] Bay Absolute 0.42 10^3/uL 0.20 - 0.15500 02/25 N [facility] Eosinophil % Auto 1.3 % 0.0 - 6.0 02/25 N [facility] Eos Absolute 0.07 10^3/uL 0.00 - 0.39215 02/25 N [facility] Basophil % Auto 0.6 % 0.0 - 4.0 02/25 N [facility] Baso Absolute 0.03 10^3/uL 0.00 - 0.16099 02/25 N [facility] Imm. Granulocyt e % 0.2 % 0.0 - 2.0 02/25 N [facility] Imm. Granulocyt e Absolute 0.01 10^3/uL 0.00 - 0.33907 02/25 N [facility] nRBC % Auto 0.0 % 02/25 N [facility] H[facility] nRBC Absolute 0.00 10^3/uL 02/25 N [facility] Infect[facility] Disease Adenovirus Not Detected (12/23/21 11:01 AM) 12/23 N [facility] Disease Coronaviru s 229E Not Detected (12/23/21 11:01 AM) 12/23 N [facility] Infectio [facility] Disease Coronaviru s HKU1 Not Detected (12/23/21 11:01 AM) 12/23 N [facility] Infectio [facility] Disease Coronaviru s NL63 Not Detected (12/23/21 11:01 AM) 12/23 N [facility] Infectio [facility] Disease Coronaviru s OC43 Not Detected (12/23/21 11:01 AM) 12/23 N [facility] Disease Human Metapneumo virus Detected *ABN* (12/23/21 11:01 AM) 12/23 A [facility] Disease Human Rhinovirus /Enterovir us Not Detected (12/23/21 11:01 AM) 12/23 N [facility] Disease Influenza A Not Detected (12/23/21 11:01 AM) 12/23 N [facility] Disease Influenza B Not Detected (12/23/21 11:01 AM) 12/23 N [facility] Infect[facility] Disease [place] nza 1 Not Detected (12/23/21 11:01 AM) 12/23 N [facility] Infectio us Disease [place] nza 2 Not Detected (12/23/21 11:01 AM) 12/23 N [facility] Infectio [facility] Disease [place] nza 3 Not Detected (12/23/21 11:01 AM) 12/23 N [facility] Infectio us Disease [place] nza 4 Not Detected (12/23/21 11:01 AM) 12/23 N [facility] Infectio [facility] Disease Respirator y Syncytial Virus Not Detected (12/23/21 11:01 AM) 12/23 N [facility] Infectio [facility] Disease Bordetella parapertus sis Not Detected (12/23/21 11:01 AM) 12/23 N [facility] Infectio us Disease Bordetella pertussis Not Detected (12/23/21 11:01 AM) 12/23 N [facility] Infect[facility] Disease Chlamydia pneumoniae Not Detected (12/23/21 11:01 AM) 12/23 N [facility] Infect[facility] Disease Resp PCR Interpreta tion See Interp 8 (12/23/21 11:01 AM) 12/23 N Interpretiv e Data: Detected: Genetic determinant s associated with organism and/or toxin was detected. Not detected: Genetic determinant s associated with organism and/or Toxin was not detected. Invalid: PCR test failure after multiple analyses. Probable inhibitor present in sample. Recollect and resubmit if clinically indicated. N/A: Organism not detected. Subtype/tox in/subgroup result is not applicable. [facility] Mycoplasma pneumoniae Not Detected (12/23/21 11:01 AM) 12/23 N [facility] Disease SARS-CoV-2 PCR Not Detected 12 (12/23/21 11:01 AM) 12/23 N Interpretiv e Data: SARS-CoV-2 detection results obtained using [employer] Platform for molecular based testing. The laboratory is certified under Clinical Laboratory Improvement Program (CLIP) and College of [place] [employer] s (CAP) as qualified to perform high complexity clinical laboratory testing. This is a diagnostic test indicated for testing individuals with signs and symptoms of SARS-CoV-2 (COVID-19). Results should be interpreted within the appropriate clinical setting of active or suspected infection. This test is not indicated, nor suitable, for screening asymptomati c individuals . This test has not been FDA cleared or approved. This test has been authorized by FDA under an EUA for use by authorized laboratorie s. This test has been authorized only for the detection of nucleic acid from SARS-CoV-2, not for any other viruses or pathogens. This test is only authorized for the duration of the declaration that circumstanc es exist justifying the authorizati on of emergency use of in vitro diagnostic tests for detection and/or diagnosis of COVID-19 under Section 564 (b) (1) of the Act, 21 U.S.C. Fact sheet for Healthcare Providers and Patients are available on the FDA website: https://www .fda.gov/Me dicalDevice s/Safety/Em ergencySitu ations/ucm1 82948.htm [facility] Disease Reason for Test? Diagnosi s (12/23/21 11:01 AM) 12/23 N [facility] Infect[facility] Disease SARS-CoV-2 PCR Negative 13 (12/22/21 11:49 AM) 12/22 N Interpretiv e Data: SARS-CoV-2 detection results obtained using [employer] Platform for molecular based testing. The laboratory is certified under Clinical Laboratory Improvement Program (CLIP) and [employer] of [place] [employer] s (CAP) as qualified to perform high complexity clinical laboratory testing. This is a diagnostic test indicated for testing individuals with signs and symptoms of SARS-CoV-2 (COVID-19). Results should be interpreted within the appropriate clinical setting of active or suspected infection. This test is not indicated, nor suitable, for screening asymptomati c individuals . This test has not been FDA cleared or approved. This test has been authorized by FDA under an EUA for use by authorized laboratorie s. This test has been authorized only for the detection of nucleic acid from SARS-CoV-2, not for any other viruses or pathogens. This test is only authorized for the duration of the declaration that circumstanc es exist justifying the authorizati on of emergency use of in vitro diagnostic tests for detection and/or diagnosis of COVID-19 under Section 564 (b) (1) of the Act, 21 U.S.C. Fact sheet for Healthcare Providers and Patients are available on the FDA website: https://www .fda.gov/Nv dicalDevice s/Safety/Em ergencySitu ations/ucm1 22506.htm [facility] Disease Reason for Test? Screenin g (12/22/21 11:49 AM) 12/22 N [facility] Chemistr y POC U HCG Negative ( 1 7:05 AM) 07/27 N [facility] Infect[facility] Disease Reason for Test? Screenin g ( 1 8:22 AM) 07/24 N [facility] Infect[facility] Disease SARS-CoV-2 PCR Negative 14 ( 1 8:22 AM) 07/24 N Interpretiv e Data: SARS-CoV-2 detection results obtained using [employer] Platform for molecular based testing. The laboratory is certified under Clinical Laboratory Improvement Program (CLIP) and [employer] of [place] [employer] s (CAP) as qualified to perform high complexity clinical laboratory testing. This is a diagnostic test indicated for testing individuals with signs and symptoms of SARS-CoV-2 (COVID-19). Results should be interpreted within the appropriate clinical setting of active or suspected infection. This test is not indicated, nor suitable, for screening asymptomati c individuals . This test has not been FDA cleared or approved. This test has been authorized by FDA under an EUA for use by authorized laboratorie s. This test has been authorized only for the detection of nucleic acid from SARS-CoV-2, not for any other viruses or pathogens. This test is only authorized for the duration of the declaration that circumstanc es exist justifying the authorizati on of emergency use of in vitro diagnostic tests for detection and/or diagnosis of COVID-19 under Section 564 (b) (1) of the Act, 21 U.S.C. Fact sheet for Healthcare Providers and Patients are available on the FDA website: https://www .fda.gov/Me De Santiago yamel/Safety/Em Camerontu narendra/ucm1 14666.htm [facility] Vital Signs Combined list of inpatient and outpatient Vital Signs from Department of Defense and Veterans Affairs, ranging from 12 months to all on record, depending upon the facility. Vital Sign Value Date Comments Source Temperature Temporal Artery 36.8Cel 07/27/2021 15:18:00 [facility] BP Site 07/27/2021 15:18:00 [facility] Blood Pressure Manual 07/27/2021 15:18:00 [facility] Systolic Blood Pressure 111mm[Hg] 07/27/2021 17:10:00 [facility] Diastolic Blood Pressure 61mm[Hg] 07/27/2021 17:10:00 [facility] Peripheral Pulse Rate 67bpm 07/27/2021 17:10:00 [facility] Respiratory Rate 18br/min 07/27/2021 17:10:00 [facility] Mean Arterial Pressure, Calc 78mm[Hg] 07/27/2021 17:10:00 [facility] Heart Rate Monitored 85bpm 07/27/2021 16:35:00 [facility] Systolic Blood Pressure 113mm[Hg] 04/30/2024 16:05:00 [facility] Diastolic Blood Pressure 78mm[Hg] 04/30/2024 16:05:00 [facility] Mean Arterial Pressure, Calc 90mm[Hg] 04/30/2024 16:05:00 [facility] Peripheral Pulse Rate 75bpm 04/30/2024 16:05:00 [facility] Respiratory Rate 18br/min 04/30/2024 16:05:00 [facility] Temperature Oral 36.6Cel 04/30/2024 16:05:00 [facility] BP Site 04/30/2024 16:05:00 [facility] Blood Pressure Manual 04/30/2024 16:05:00 [facility] Systolic Blood Pressure 105mm[Hg] 03/09/2022 15:17:00 [facility] Diastolic Blood Pressure 71mm[Hg] 03/09/2022 15:17:00 [facility] Mean Arterial Pressure, Calc 82mm[Hg] 03/09/2022 15:17:00 [facility]ulatory [facility] Peripheral Pulse Rate 88bpm 03/09/2022 15:17:00 [facility] Respiratory Rate 18br/min 03/09/2022 15:17:00 [facility] BP Site 03/09/2022 15:17:00 [facility] Temperature Oral 36.7Cel 03/09/2022 15:17:00 [facility] Blood Pressure Manual 03/09/2022 15:17:00 [facility] Temperature Tympanic 36.9Cel 07/20/2021 21:30:00 [facility] BP Site 07/20/2021 21:30:00 [facility] Blood Pressure Manual 07/20/2021 21:30:00 [facility] Heart Rate Monitored 84bpm 07/27/2021 16:20:00 [facility] Systolic Blood Pressure 102mm[Hg] 07/27/2021 17:00:00 [facility] Diastolic Blood Pressure 58mm[Hg] 07/27/2021 17:00:00 [facility] Peripheral Pulse Rate 73bpm 07/27/2021 17:00:00 [facility] Heart Rate Monitored 75bpm 07/27/2021 17:00:00 [facility] Respiratory Rate 15br/min 07/27/2021 17:00:00 [facility] Mean Arterial Pressure, Calc 73mm[Hg] 07/27/2021 17:00:00 [facility] Heart Rate Monitored 91bpm 07/27/2021 16:40:00 [facility] Systolic Blood Pressure 107mm[Hg] 02/25/2023 15:00:00 [facility] Diastolic Blood Pressure 70mm[Hg] 02/25/2023 15:00:00 [facility] Mean Arterial Pressure, Calc 82mm[Hg] 02/25/2023 15:00:00 [facility]ulatory [facility] Peripheral Pulse Rate 71bpm 02/25/2023 15:00:00 [facility] Respiratory Rate 16br/min 02/25/2023 15:00:00 [facility] BP Site 02/25/2023 15:00:00 [facility] Temperature Oral 36.6Cel 02/25/2023 15:00:00 [facility] Blood Pressure Manual 02/25/2023 15:00:00 [facility] Temperature Oral 36.7Cel 01/16/2022 02:44:00 [facility] Systolic Blood Pressure 142mm[Hg] 01/16/2022 02:44:00 [facility] Diastolic Blood Pressure 95mm[Hg] 01/16/2022 02:44:00 [facility] Peripheral Pulse Rate 92bpm 01/16/2022 02:44:00 [facility] Respiratory Rate 17br/min 01/16/2022 02:44:00 [facility] Systolic Blood Pressure 106mm[Hg] 03/21/2024 17:02:00 [facility] Diastolic Blood Pressure 70mm[Hg] 03/21/2024 17:02:00 [facility] Mean Arterial Pressure, Calc 82mm[Hg] 03/21/2024 17:02:00 [facility] Peripheral Pulse Rate 78bpm 03/21/2024 17:02:00 [facility] Respiratory Rate 16br/min 03/21/2024 17:02:00 [facility] Temperature Oral 36.9Cel 03/21/2024 17:02:00 [facility] BP Site 03/21/2024 17:02:00 [facility] Blood Pressure Manual 03/21/2024 17:02:00 [facility] Systolic Blood Pressure 103mm[Hg] 04/03/2024 16:46:00 [facility] Diastolic Blood Pressure 66mm[Hg] 04/03/2024 16:46:00 [facility] Mean Arterial Pressure, Calc 78mm[Hg] 04/03/2024 16:46:00 [facility] Peripheral Pulse Rate 63bpm 04/03/2024 16:46:00 [facility] Respiratory Rate 16br/min 04/03/2024 16:46:00 [facility] Temperature Oral 36.8Cel 04/03/2024 16:46:00 [facility] BP Site 04/03/2024 16:46:00 [facility] Blood Pressure Manual 04/03/2024 16:46:00 [facility] Heart Rate Monitored 98bpm 07/27/2021 16:30:00 [facility] BP Site 02/26/2021 20:15:00 [facility] Temperature Oral 36.5Cel 02/26/2021 20:15:00 [facility] Heart Rate Monitored 96bpm 07/27/2021 16:50:00 [facility] Mean Arterial Pressure, Calc 70mm[Hg] 07/27/2021 16:50:00 [facility]ulatory [facility] Peripheral Pulse Rate 76bpm 07/27/2021 16:55:00 [facility] Heart Rate Monitored 72bpm 07/27/2021 16:55:00 [facility] Respiratory Rate 15br/min 07/27/2021 16:55:00 [facility] Systolic Blood Pressure 98mm[Hg] 07/27/2021 16:55:00 [facility]ulatory [facility] Diastolic Blood Pressure 54mm[Hg] 07/27/2021 16:55:00 [facility] Mean Arterial Pressure, Calc 69mm[Hg] 07/27/2021 16:55:00 [facility]ulatory [facility] Systolic Blood Pressure 131mm[Hg] 12/23/2021 15:09:00 [facility]ulatory [facility] Diastolic Blood Pressure 78mm[Hg] 12/23/2021 15:09:00 [facility] Mean Arterial Pressure, Calc 96mm[Hg] 12/23/2021 15:09:00 [facility]ulatory [facility] Peripheral Pulse Rate 80bpm 12/23/2021 15:09:00 [facility]ulatory [facility]acy Respiratory Rate 16br/min 12/23/2021 15:09:00 Ambulatory Pharmacy BP Site 12/23/2021 15:09:00 [facility] Temperature Oral 36.7Cel 12/23/2021 15:09:00 [facility] Blood Pressure Manual 12/23/2021 15:09:00 [facility]ulatory Pharmacy Heart Rate Monitored 91bpm 07/27/2021 16:25:00 [facility]ulatory Pharmacy Heart Rate Monitored 96bpm 07/27/2021 16:45:00 Ambulatory Pharmacy Encounters Combined list of: 1) Encounters from Department of Veterans Affairs facilities going back up to thelast 18 months. 2) Encounters from the Department of Defense facilities going back up to 280 months. Location Location Details Encounter Type Encounter Number Reason For Visit Attending Provider ADM Date DC Date Status Disposition Source [place]([facility]) OUTPATIENT [id number] sports physica l/well visit ARSENIO LUNDY 10/08 Immediate Referral [place]([facility]) [place] OUTPATIENT [id number] req referra l ARSENIO LUNDY 10/22 Immediate Referral [place]) [place] OUTPATIENT [id number] headach es ARSENIO LUNDY 01/08 Released w/o Limitations [place]([facility]) [place]) OUTPATIENT [id number] Notes Entered by: RAFAELA CAO W 09 Jan 2016 1416 ------- ------- ------- ------- -- RAFAEL Huitron 01/08 Released w/o Limitations [place]) [facility] Tm 1) OUTPATIENT [id number] EVAL R KNEE PAIN AND SWELLIN G (PCM OVERTON) MAYNOR OVERTON 01/17 Released w/o Limitations [facility] Tm 1) OUTPATIENT [id number] eval-sw ollen knee MAYNOR OVERTON 07/24 Released w/o Limitations [facility](M CASM [facility] Tm 1) [facility]) OUTPATIENT [id number] Pain in right knee ZAFAR CURRAN 08/10 Released w/o Limitations [facility] ) [facility]) OUTPATIENT [id number] folow up HANNAH BOWER S 09/14 Released w/o Limitations [facility] ) [facility]) OUTPATIENT [id number] MARLEE BOWERI S 09/21 Released w/o Limitations [facility] ) [facility]) OUTPATIENT [id number] CHELIMARLEE FIELDSI S 09/28 Released w/o Limitations [facility](K [facility] ) [facility]) OUTPATIENT [id number] ZAFAR CURRAN 10/02 Released w/o Limitations [facility](K [facility] Phys[facility] ) [facility] Tm 1) TELE CONSULT [id number] Notes Entered by: Ingrid OVERTON 04 Oct 2018 0828 ------- ------- ------- ------- -- Knee pain NATHALY LIVINGSTONAlvaro 10/[address] [facility](M CASM [facility] Tm 1) [facility] SM [facility] Tm 1) OUTPATIENT [id number] f/u for knee pain with palpita tions MAYNOR OVERTON 10/04 Released w/o Limitations [facility](M CASM [facility] Tm 1) [facility]) OUTPATIENT [id number] HANNAH BOWER S 10/05 Released w/o Limitations [facility](K M Physica l Therapy ) [facility]) OUTPATIENT [id number] gjs HANNAH BOWER S 10/11 Released w/o Limitations [facility](K M Physica l Therapy ) [facility] TELE CONSULT [id number] Notes Entered by: Ingrid OVERTON 24 Oct 2018 0748 ------- ------- ------- ------- -- MRI result MAYNOR OVERTON 10/24 [facility] TELE CONSULT [id number] Notes Entered by: Micki WOODS 18 Jan 2019 1447 ------- ------- ------- ------- -- Sheri lafleur Fax/Rad y Childlucia james/ MAYNOR Post 01/18 [facility](M CASM [facility] Tm 1) [facility] Med [facility] Tm 1) OUTPATIENT [id number] sports physiccharlette l MAYNOR OVERTON 04/02 Released w/o Limitations [facility](M CASM [facility] Tm 1) [facility] Fam Med [facility] Tm 1) TELE CONSULT [id number] Notes Entered by: YARITZA NUNEZ 09 Apr 2019 0805 ------- ------- ------- ------- -- Medical : Consult (PCM: Ingrid OVERTON ) MAYNOR OVERTON 04/09 [facility](M CASM Fam Med [facility] Tm 1) [facility](SD Ophthalmo logy Pediatric s) OUTPATIENT [id number] Autoimm une conditi on EDITH SPEARS 04/23 Released w/o Limitations [facility](S D Ophthal mology Pediatr ics) [facility] Fam Med [facility] Tm 1) OUTPATIENT [id number] L ANKLE PAIN MAYNOR OVERTON 07/17 Released w/o Limitations [facility](M CASM F[facility] Tm 1) [facility] F[facility] Med [facility] TELE CONSULT [id number] Notes Entered by: JASPAL WHITAKER V 23 Jul 2019 1405 ------- ------- ------- ------- -- Medical -MRI appt mom req:maria eugenia l back sebastian MAYNOR OVERTON 07/23 [facility]M CAS[facility] TELE CONSULT [id number] Notes Entered by: Ingrid OVERTON 14 Aug 2019 1416 ------- ------- ------- ------- -- MRI results MAYNOR OVERTON 08/14 [facility](M CASM Fam Med [facility] Tm 1) [facility](SD Ophthalmo logy Pediatric s) OUTPATIENT [id number] f/u EDITH SPEARS 01/09 Released w/o Limitations [facility](S D Ophthal mology Pediatr ics) [facility] Fam Med PC[facility] Tm 1) OUTPATIENT [id number] sports physica l MAYNOR OVERTON 05/15 Released w/o Limitations [facility](M CASM Fam Med [facility] Tm 1) [facility] SM Fam Med PC[facility] Tm 1) OUTPATIENT [id number] discuss order for xray [phone] pls call by 950MAYNOR Chatterjee 06/20 Released w/o Limitations [facility](M [facility] Tm 1) [facility](SD Dermatolo gy) OUTPATIENT [id number] Other skin changes SHANNAN SANFORD Leidy 06/25 Released w/o Limitations [facility](S D Dermato logy) [facility](SD Ophthalmo logy Pediatric s) OUTPATIENT [id number] EDITH CRISTINA 07/10 Released w/o Limitations [facility](S D Ophthal mology Pediatr ics) [facility] Preventiv e Med) OUTPATIENT [id number] Notes Entered by: SUMIT COLLADO 11 Sep [id number] ------- ------- ------- ------- -- POSITIV E COVID19 ADALGISA COLLADO 09/12 Sick at Home/Quarter s [facility](S D Prevent alvaro Med) 0410[facility] Between Visit [id number] 04/23 Discharge Disposition: Home or Self Care 0410[facility] Between Visit [id number] 04/24 Discharge Disposition: Home or Self Care 0232[facility] [id number] MAYNOR TDUONG 04/26 Discharge Disposition: Home or Self Care 0232[facility] [id number] MAYNOR TDUONG 04/30 Discharge Disposition: Home or Self Care 0232[facility]el edical Outpatient [id number] Encount er for inserti on of intraut erine contrac eptive device LORNA GRIMM Dontae 04/30 Discharge Disposition: Home or Self Care [facility] Combined list of: 1) Procedures from Department of Veterans Affairs facilities [facility] 18 months, not all VA non-surgical procedures are included; 2) All procedures from the Department of Defense facilities. Procedure Procedure Type Code Date Perfomer Comments [facility] e Incision and drainage, complex, postoperative wound infection Incision and drainage, complex, postoperative wound infection [id number] 023-[facility] teeth- jul [address] [place] [address] [facility]el [facility] Ophthalmological New Patient Start Comprehensive Care Ophthalmological New Patient Start Comprehensive Care [id number] EDITH SPEARS [facility] Screening Test Of Visual Acuity, Quantitative, Bilateral Screening Test Of Visual Acuity, Quantitative, Bilateral [id number] MAYNOR OVERTON [facility] Modalities Ultrasound Modalities Ultrasound 24072 019 [facility] Mobilization Soft Ti ue Mobilization Soft Tissue 36657 019 CHELI, HANNAH S [facility] Physical Therapy Neuromuscular Re-education Physical Therapy Neuromuscular Re-education 95994 019 CHELI HANNAH S [facility] Modalities Ultrasound Modalities Ultrasound 15013 019 MARLEE BOWERI S [facility] Mobilization Soft Ti ue Mobilization Soft Tissue 10611 019 CHELI HANNAH S [facility] Physical Therapy Neuromuscular Re-education Physical Therapy Neuromuscular Re-education 19129 019 CHELI HANNAH S [facility] Physical Therapy Service Re-Evaluation Physical Therapy Service Re-Evaluation 15531 019 ZAFAR CURRAN [facility] Mobilization Soft Ti ue Mobilization Soft Tissue 28278 019 CHELI, HANNAH S [facility] Physical Therapy Neuromuscular Re-education Physical Therapy Neuromuscular Re-education 59119 019 CHELI HANNAH S [facility] Mobilization Soft Ti ue Mobilization Soft Tissue 03464 019 CHELI HANNAH S [facility] Physical Therapy Neuromuscular Re-education Physical Therapy Neuromuscular Re-education 18192 019 HANNAH BOWER [facility] Physical Therapy Neuromuscular Re-education Physical Therapy Neuromuscular Re-education 90985 019 HANNAH BOWER [facility] Mobilization Soft Ti ue Mobilization Soft Tissue 92886 019 HANNAH BOWER [facility] Patient Training And Self-Care Skills Each 15 Minutes Patient Training And Self-Care Skills Each 15 Minutes [id number] ZAFAR CURRAN A isted Exercises For ROM Assisted Exercises For ROM 72408 018 ZAFAR CURRAN Physical Therapy Service Evaluation Low Complexity Physical Therapy Service Evaluation Low Complexity 67712 018 ZAFAR CURRAN Human Papilloma Virus Vaccine, Quadrivalent Human Papilloma Virus Vaccine, Quadrivalent 11512 RAFAEL ALBERT HPV, quadrivalent; Series #: 2; .5 mL; IM; Left Arm; Mfg: CO Everywhere; Lot: [id number]; VIS given (Gentry: 01/19/13). [facility] Immunization Administration By Injection, One Vaccine Immunization Administration By Injection, One Vaccine 31734 RAFAEL ALBERT Influenza Split Virus Vaccine IM Preserv Free 0.5mL Dosage Quadrivalent ARSENIO LUNDY Influenza Seasonal, injectable quadrivalent - preservative free; Series #: 1; .5 mL; IM; Left Arm; [facility]: [employer]; Lot: [id number]; VIS given (Gentry: 04/11/2015). [facility] Immunization Administration By Injection, One Vaccine Immunization Administration By Injection, One Vaccine 02278 ARSENIO LUNDY [facility] Immunization Administration By Injection, Each Additional Vaccine Immunization Administration By Injection, Each Additional Vaccine 74786 ARSENIO HERNANDEZ [facility] Meningococcal (A, C, Y, W-135) Oligosacch Diphtheria Toxoid Conj Vacc ARSENIO LUNDY Meningococcal MCV4P; Series #: 1; .5 mL; IM; Left Arm; Mfg: [employer]; Lot: [id number]; VIS given (Gentry: 06/18/11). [facility] Tdap Vaccine Tdap Vaccine 48052 016 ARSENIO LUNDY Tdap; Series #: 1; .5 mL; IM; Right Arm; Mfg: [employer]; Lot: [id number]; VIS given (Gentry: 10/29/14). [facility] Human Papilloma Virus Vaccine, Quadrivalent Human Papilloma Virus Vaccine, Quadrivalent 58703 ARSENIO LUNDY HPV, quadrivalent; Series #: 1; .5 mL; IM; Right Arm; Mfg: CO Everywhere; Lot: [id number]; VIS given (Gentry: 01/19/13). [facility] Ophthalmological Prior Patient Start Comprehensive Care Ophthalmological Prior Patient Start Comprehensive Care 16112 BOBBY RIVERA [facility] Screening Test Of Visual Acuity, Quantitative, Bilateral Screening Test Of Visual Acuity, Quantitative, Bilateral 14230 MAYNOR OVERTON [facility] Waiver services; not otherwise specified (NOS) MAYNOR OVERTON [facility] Ophthalmological Sensorimotor Exam Ophthalmological Sensorimotor Exam 86692 EDITH SPEARS [facility] IMMUNIZATION ADMINISTRATION (INCLUDES PERCUTANEOUS, INTRADERMAL, SUBCUTANEOUS, OR INTRAMUSCULAR INJECTIONS); 1 VACCINE (SINGLE OR COMBINATION VACCINE/TOXOID) [facility] IMMUNIZATION ADMINISTRATION (INCLUDES PERCUTANEOUS, INTRADERMAL, SUBCUTANEOUS, OR INTRAMUSCULAR INJECTIONS); EACH ADDITIONAL VACCINE (SINGLE OR COMBINATION VACCINE/TOXOID) [facility] WAIVER SERVICES; NOT OTHERWISE SPECIFIED (NOS) [facility] SENSORIMOTOR EXAMINATION WITH MULTIPLE MEASUREMENTS OF OCULAR DEVIATION (EG, RESTRICTIVE OR PARETIC MUSCLE WITH DIPLOPIA) WITH INTERPRETATION AND REPORT (SEPARATE PROCEDURE) [facility] WAIVER SERVICES; NOT OTHERWISE SPECIFIED (NOS) [facility] SCREENING TEST OF VISUAL ACUITY, QUANTITATIVE, BILATERAL [facility] OPHTHALMOLOGICAL SERVICES: MEDICAL EXAMINATION AND EVALUATION, WITH INITIATION OR CONTINUATION OF DIAGNOSTIC AND TREATMENT PROGRAM; COMPREHENSIVE, ESTABLISHED PATIENT, 1 OR MORE VISITS [facility] OPHTHALMOLOGICAL SERVICES: MEDICAL EXAMINATION AND EVALUATION WITH INITIATION OF DIAGNOSTIC AND TREATMENT PROGRAM; COMPREHENSIVE, NEW PATIENT, 1 OR MORE VISITS [facility] SCREENING TEST OF VISUAL ACUITY, QUANTITATIVE, BILATERAL [facility] APPLICATION OF A MODALITY TO 1 OR MORE AREAS; ULTRASOUND, EACH 15 MINUTES [facility] APPLICATION OF A MODALITY TO 1 OR MORE AREAS; ULTRASOUND, EACH 15 MINUTES [facility] RE-EVAL,PHYSICAL THERAPY EST PLAN OF CARE,REQ:EXAM,REV,H X & USE,STAND TESTS &KASH REQ;REV PLAN OF CARE USING STAND PAT ASSESS INSTR &/KASH ASSESS FUNC OUTCOME TYP,20 MIN SPENT STCR-MG-UNLU W PAT&/FAM [facility] MANUAL THERAPY TECHNIQUES (EG, MOBILIZATION/ MANIPULATION, MANUAL LYMPHATIC DRAINAGE, MANUAL TRACTION), 1 OR MORE REGIONS, EACH 15 MINUTES [facility] MANUAL THERAPY TECHNIQUES (EG, MOBILIZATION/ MANIPULATION, MANUAL LYMPHATIC DRAINAGE, MANUAL TRACTION), 1 OR MORE REGIONS, EACH 15 MINUTES [facility] THERAPEUTIC PROCEDURE,1 OR MORE AREAS,EACH 15 MINUTES;NEUROMUSCUL AR REEDUCATION OF MOVEMENT,BALANCE,CO ORDINATION,KINESTHE TIC SENSE,POSTURE,AND/O R PROPRIOCEPTION FOR SITTING AND/OR STANDING ACTIVITIES [facility] PHYSICAL THERAPY EVALUATION:LOW COMPLEXITY,REQ:HIST W NO PERS FACT &/COMORB THAT IMPACT PLAN OF CARE;CLIN DECIS MAKING OF LOW COMPLEXITY,TYPICALL Y,20 MIN ARE SPENT [id number] W THE PATIENT &/FAMILY [facility] Social History Combined list of available smoking, tobacco, and other social history from Department of Defense and Veterans Affairs facilities. Social History Type Response Date Comment Sourc e Female 09/04/2020 Ambulatory Pha rmacy Tobacco Frequent/Daily exposure to secondhand smoke in indoor/confined spaces No. Never-cigarette user Cigarette use:. Never-other tobacco user (not cigarettes) Other Tobacco use:. Ambulatory Pharmacy Sexual Orientation Ambula tory Pharmacy Gender identity Ambulator y Pharmacy This section is an empty social history section. [facility] Assessment and Plan Combined list of future care activities from Department of Defense and Veterans Affairs facilities (e.g., assessment and plan notes, appointments, orders, and referrals). Additional future care activities may be listed in the Plan of Care section. Result Assessment and Plan Date Source Assessment and Plan Extracted from:Title : Mirena insertion Author: LORNA CARCAMO MD Date: 04/30/24 1.?Encounter for insertion of intrauterine contraceptive device Tolerated well. Return precautions reviewed. NSAIDs prn. Ordered: levonorgestrel(Mirena), 52 mg, IntraUterine, Implant, Once, First Dose: 04/30/2024 10:00:00 PDT, Stop Date: 04/30/2024 10:00:00 PDT, Hazardous, 04/30/2024 09:22:00 PDT Beta HCG Qualitative, Urine ? Lorna Carcamo DO Extracted from:Title: Lab results office Clinic Note Author: MAYNOR OVERTON MD Date: 04/04/24 1.?Laboratory test result abnormal This encounter was completed as a virtual visit. The provider was located on-site at [facility]. The patient was given the opportunity to discuss the risks and benefits of telehealth at the beginning of the encounter. The patient was verbally informed of their right to refuse care via telehealth and they were informed of other care options available upon refusal. Patient verbalized an understanding and provided verbal consent to continue with the virtual visit. ? Patient is a 18-year-old female?who had urine chlamydia check but came back positive. Patient is not sexually active and does not have any symptoms.? Will recheck labs. ?Total time spent?10 minutes Ordered: GC and Chlamydia Screen ? Orders: *Differential Automated *Glomerular Filtration Rate, Estimated CBC w/ Diff Comprehensive Metabolic Panel GC and Chlamydia Screen Referral Request 2.0 - DoD Extracted from:Title: Blood per rectum office Clinic Note Author: MAYNOR OVERTON MD Date: 04/03/24 1.?Blood per rectum 18-year-old female here complaining of blood per rectum with bowel movements?for 2 weeks. ?Blood in the toilet bowl.? No changes in bowel consistency, diarrhea,?constipation.? No rectal or abdominal pain.? No family history of?colon cancer, Crohn's?or ulcerative colitis.? Check labs and also referral to GI. ?Follow-up if symptomatic Ordered: CBC w/ Diff Comprehensive Metabolic Panel GC and Chlamydia Screen Referral Request 2.0 - DoD ? Extracted from:Title: Physical office Clinic Note Author: MAYNOR OVERTON MD Date: 03/21/24 1.?Well adult monitoring status 18-year-old female here for physical. ?Patient is a sophomore?in college in [place]?taking biology. ?Interested in healthcare.? No issues. Anticipatory guidance and healthy lifestyle discussed with patient.? Immunizations up-to-date. ?Recommend yearly flu vaccination 2.?Rheumatoid arthritis Continue with?rheumatology management. Orders: GC and Chlamydia Screen Extracted from:Title: Refill office Clinic Note Author: MAYNOR OVERTON MD Date: 11/24/23 1.?Contraception status This encounter was completed as a virtual visit. The provider was located on-site at [facility]. The patient was given the opportunity to discuss the risks and benefits of telehealth at the beginning of the encounter. The patient was verbally informed of their right to refuse care via telehealth and they were informed of other care options available upon refusal. Patient verbalized an understanding and provided verbal consent to continue with the virtual visit. ? 18-year-old female G0?requesting refill on control and also folic acid.? Patient is on folic acid?because of rheumatoid arthritis on methotrexate.? No other issues. Total time spent?12 minutes ? Ordered: folic acid(folic acid 1 mg oral tablet), 1 tab(s), Oral, Daily, # 90 tab(s), 3 total refill(s), Maintenance, 1 tab(s) Oral Daily, Pharmacy: [facility] [Not filled] levonorgestrel-ethinyl estradiol(Kurvelo 0.15 mg-30 mcg oral tablet), 1 tab(s), Oral, Daily, # 168 tab(s), 1 total refill(s), Maintenance, 1 tab(s) Oral Daily, Pharmacy: [facility] [Not filled] Beta HCG Qualitative, Urine GC and Chlamydia Screen ? 2.?Rheumatoid arthritis Continue with?ent consultant management. ?Asymptomatic Ordered: folic acid(folic acid 1 mg oral tablet), 1 tab(s), Oral, Daily, # 90 tab(s), 3 total refill(s), Maintenance, 1 tab(s) Oral Daily, Pharmacy: [facility] [Not filled] levonorgestrel-ethinyl estradiol(Kurvelo 0.15 mg-30 mcg oral tablet), 1 tab(s), Oral, Daily, # 168 tab(s), 1 total refill(s), Maintenance, 1 tab(s) Oral Daily, Pharmacy: [facility] [Not filled] ? Extracted from:Title: Rheumatoid arthritis office Clinic Note Author: MAYNOR OVERTON MD Date: 08/12/23 1.?Rheumatoid arthritis This encounter was completed as a virtual visit. [facility] The patient was given the opportunity to discuss the risks and benefits of telehealth at the beginning of the encounter. The patient was verbally informed of their right to refuse care via telehealth and they were informed of other care options available upon refusal. Patient verbalized an understanding and provided verbal consent to continue with the virtual visit. ? 17-year-old female with?rheumatoid arthritis at age 15. ?Was seen by?pediatric ent consultant at?[facility].? Was recommended to get an adult ent consultant. ?Needs new referral.? On methotrexate and stable. Ordered: Referral Request 2.0 ? Extracted from:Title: Well office Clinic Note Author: MAYNOR OVERTON MD Date: 02/25/23 1.?Well adult monitoring status 17-year-old female here for physical.? Patient is starting?college in [place] playing softball. ?No issues. Recommend flu and covid. Anticipatory guidance and healthy lifestyle?discussed with patient.? Needs labs below?for school ? Ordered: CBC w/ Diff G6PD Quant, Blood and RBC [id number] GC and Chlamydia Screen ? 2.?Rheumatoid arthritis Being seen by rheumatology.? Stable on methotrexate. ? Extracted from:Title: well-Office Clinic Note Author: MAYNOR OVERTON MD Date: 03/09/22 1.?Well teen 16-year-old female here for physical. ?Senior in high school. ?Development intact.? Anticipatory guidance and healthy lifestyle discussed with patient. ?Immunizations up-to-date. Ordered: GC and Chlamydia Screen ? 2.?Rheumatoid arthritis Referral was put in. Ordered: GC and Chlamydia Screen Referral Request 2.0 ? Extracted from:Title: Office Clinic Note Author: LAUREN MORFIN PA-C Date: 12/24/21 Viral upper respiratory tract infection Mild acute viral URI. Discussed diagnosis, supportive home care medication use/SE/AR, f/u need, and all questions answered. Patient/parent ?educated and voiced understanding. Will f/u if symptoms persist, increase and prn.? Ordered: acetaminophen, 2 tab(s), Oral, every 6 hr, PRN pain or fever, # 30 tab(s), 0 total refill(s), Acute, 01/22/2022, 2 tab(s) Oral every 6 hr,PRN:as needed for pain or fever, Pharmacy: [facility] [Last filled 12/23/21] guaiFENesin, 1 tab(s), Oral, every 12 hr, # 20 tab(s), 0 total refill(s), Acute, 01/22/2022, 1 tab(s) Oral every 12 hr, Pharmacy: [facility] [Last filled 12/23/21] loratadine-pseudoephedrine, 1 tab(s), Oral, Daily, # 15 tab(s), 0 total refill(s), Acute, 1 tab(s) Oral Daily, Pharmacy: [facility] [Last filled 12/23/21] oxymetazoline nasal, 2 spray(s), Nostril-Both, BID, Do not use for longer than 72 hours, # 15 mL, 0 total refill(s), Acute, 2 spray(s) Nostril-Both BID,Instr:Do not use for longer than 72 hours, Pharmacy: [facility] [Last filled 12/23/21] Respiratory Film Array PCR 2.1 ? Extracted from:Title: Thumb tendinitis office Clinic Note Author: MAYNOR OVERTON MD Date: 07/20/21 1.?Pain in right thumb ?15-year-old female with history of juvenile?rheumatoid arthritis?complaining of right thumb pain?since Tuesday?morning.? Patient plays baseball but denies any trauma?or injury.? Soreness like when pressing?on the thumb?or?grabbing?or throwing.? No swelling.? No rash or lesions. ?No numbness. ?No fever. ?Soreness like 6 out of 10?and does not radiate. ?Likely secondary to tendinitis. ?Supportive care with splint,?cold compresses. ?Follow-up if worsens or with other symptoms Ordered: Office Visit Level 4 Est 32096 ? Extracted from:Title: Office Clinic Note Author: JOSE DE JESUS FIGUEROA Date: 02/26/21 Vaccination given Future Scheduled TestsLaboratoryGC and Chlamydia Screen 03/21/24 06/16/2024 Ambulatory Pharmacy Functional Status Combined list of recent functional and cognitive assessments recorded at Department of Defense and Veterans Affairs (VA).VA Functional [place] Measurement (FIM) Scale: 1 = Total Assistance (Subject = 0% +), 2 = Maximal Assistance (Subject = 25% +), 3 = Moderate Assistance (Subject = 50% +), 4 = Minimal Assistance (Subject = 75% +), 5 = Supervision, 6 = Modified [place] (Device), 7 = Complete [place] (Timely, Safely). Assessment Date/Time Source Assessment Type Assessment Skill Assessment Score Assessment Details No data available for this section
--- OUTSIDE RECORDS SUMMARY | 2024-06-16 01:50 | XMS_ITS | Encounter Summary ---
Author Organization [facility] and [place]iliates [place] [address] Care Team Providers Care Leather Fitter Name Role Phone Terrie [facility] Primary Care Provider Reason for Visit * Reason Onset Date Comments Referral/authorization 04/09/2024 Encounter Details Date Type Department Care Team (Late st Contact Info) Description 04/09/2024 Telephone [facility] [place] [address] Nurse, Gi, fuse coiler/authorization Social History Tobacco Use Types Packs/Day Years Used Date Smoking Tobacco: Never Assessed Drug Use (DAST) Answer Date Recorded DAST Total Score Not on file 04/12/2024 Sex and Gender Information Value Date Recorded Sex Assigned at Not on file Gender Identity Not on file Sexual Orientation Not on file documented as of this encounter Miscellaneous Notes * Telephone Encounter - Jacque Norris - 06/04/2024 11:58 AM PDT Order is transcribed and the patient will be contacted through the , thank you. * Telephone Encounter - Alysia Brady - 04/10/2024 4:43 PM PDT Callers Name: [place] Relationship to Patient: Self Date Referral Received: 04/09/2024 @ 6:54 PM with 4 pages & 04/10/2024 @ 11:54 AM with 7 pages Reason for Referral Clinic - Please route encounter to [facility] FAX COORDINATION for processing Patients Reg. Updated/Completed: yes Best Call Back Number: [phone] Callers Comments/Requests: Please advise the patient their request has been sent to a student teaching coordinator for processing. The patient will be contacted once the referral is ready to schedule. Please advise them if any additional information is needed to complete the referral, it may cause a delay. * Telephone Encounter - KristoferSheila white Betostucallum - 04/09/2024 5:20 PM PDT Received call from patient inquiring about scheduling an appointment. Patient states she was seen by her PCM and received a referral for blood in stool. Assisted patient with updating registration and fixing insurance. Registration had incorrect information on file. Advised patient call PCM and have them fax over referral and medical records including most recent vitals. Provided patient with GI fax number. Patient had no further questions at this time. Thank you. Patient calling to inquire about referral. Patient is being referred for: Clinic Registration was completed or verified: yes Was referral located in Right Fax: No When was the referral sent: 04/09/2024 If its greater than 14 days, please advise patient to contact the referring MD's office to send faxagain. Fax number provided: - [phone] If patient provides you the incorrect fax number, please provide the correct fax number. *Please advise the patient that once their referral is received it will be processed by our student teaching coordinator and then be assessed by our triage team. The patient will be contacted once the referral is ready to schedule. Please advise them if any additional information is needed to complete the referral, it may cause a delay. Documenting as FYI. documented in this encounter Plan of Treatment Not on file documented as of this encounter Visit Diagnoses Not on filedocumented in this encounter Care Teams Leather Fitter Relationship Specialty Start Date End [facility] [address] [place] [address] PCP - General 09/05/18 documented as of this encounter
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
--- OUTSIDE RECORDS SUMMARY | 2024-06-16 01:51 | XMS_ITS | Clinical Summary ---
Author Organization [facility] Address [address] [place] [address] Care Team Providers Care Arm Maker Name Role Phone Terrie [facility] Primary Care Provider Allergies No known active [...] Tobacco: Never Smokeless Tobacco: Never Patient Education ([facility]) Answer Date R ecorded School [...] 08/30/2023 1:5 2 PM PST Growth Chart: CDC (Girls, 2- 20 Years) Plan of Treatment Health Maintenance Due Date Last Done Comments Caregiver Literacy Screening 2004 Caregiver Stress Screening 2004 Food Insecurity Screening 2004 Housing Needs Screening 2004 Lipid Panel Test 2004 Transportation Screening 2004 Pneumococcal Vaccine (1 of 3 - PPSV23 or PCV20) 05/28/2005 04/02/2005, 04/02/2005, 01/29/2005, Additional history exists HPV Vaccine (3 - 2-dose series) 04/08/2016 01/09/2016, 10/09/2015 Adolescent Substance Use Screening 2016 COVID-19 Vaccine (3 - Pfizer risk series) 02/13/2021 01/16/2021, 12/26/2020 Seasonal Influenza Vaccine (#1) 2024 06/24/2022, 07/02/2021, 06/19/2020, Additional history exists DTaP/Tdap/Td Vaccines (6 - Td or Tdap) 10/09/2025 10/09/2015, 10/17/2008, 04/02/2005, Additional history exists Hepatitis B Vaccine Completed 04/02/2005, 04/02/2005, 2004, Additional history exists Hepatitis A Vaccine Completed 11/02/2006, 6 MMR Vaccine Completed 10/17/2008, 10/05/2005 Polio Vaccine (IPV) Completed 10/17/2008, 04/02/2005, 01/29/2005, Additional history exists Varicella Vaccine Completed 10/17/2008, 10/05/2005 Meningococcal Vaccine Completed 02/26/2021, 016 Rotavirus Vaccine Aged Out No longer eligible based on patient's age to complete this topic Advance Directives For more information, please contact: [phone] * Full Code (Latest Code Status on [...] 3:34 PM 05/16/2019 8:45 PM Care Teams Arm Maker Relationship Specialty Start Date End Date [address] [address] PCP - General 10/24/18
--- NOTE | 2024-06-16 01:58 | ED_ITS ---
HPI - General Adult General Date Seen: 06/16/24 Chief complaint: Chest Pain Stated complaint: chest pain, left shoulder pain Time Seen by Provider: 06/16/24 01:29 Source: patient, RN notes reviewed and old records reviewed Mode of arrival: ambulatory Limitations: no limitations History of Present Illness HPI narrative: Patient is a 18-year-old college student here for evaluation of chest pain that started when she laid down to go to bed. She says she developed a sharp stabbing pain in her left chest which was localized but then as time went on she started to have some pain in her left arm as well. Then she started to feel short of breath. The chest pain has resolved but she still has little bit of soreness in her left arm and still feels a little short of breath. She did not have pleuritic pain. It was worse with laying down versus sitting up. Denies fevers or cough, lower extremity swelling or pain. She is not on oral contraceptives, does have an IUD. No history of DVT or PE, no family history of hypercoagulability. She does smoke marijuana and vapes nicotine. She did not take any medications at school. She came in because she was worried she might be having a heart attack or stroke. General health is notable for JRA, she takes methotrexate chronically. No cardiac history. Related Data Home Medications ?Medication ?Instructions ?Recorded ?Confirmed leucovorin calcium 5 mg tablet 5 mg PO Q7D 06/23/23 07/01/23 methotrexate sodium 2.5 mg tablet 20 mg PO Q7D 06/23/23 07/01/23 Previous Rx's ?Medication ?Instructions ?Recorded Lactobacillus acidophilus 0.5 mg 1 mg (2 x 0.5 mg (100 million 06/25/23 (100 million cell) tablet cell)) PO TIDWM 90 days #180 tabs cefdinir 300 mg capsule 300 mg PO BID 8 days #16 caps 06/25/23 Allergies Allergy/AdvReac Type Severity Reaction Status Date / Time No Known Drug Allergies Allergy Verified 06/16/24 01:28 Review of Systems Status of ROS: Reports: 6 or more systems reviewed and unremarkable except as noted in History and below [facility] Medical History JRA (juvenile rheumatoid arthritis) ?M08.00 - Unspecified juvenile rheumatoid arthritis of unspecified site (ICD- 10) Surgical History H/O knee surgery (2018) ?Z98.890 - Other specified postprocedural states (ICD-10) Social History Narrative: 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 Nonsmoker, no ETOH, no drugs Exercise 4 times a week weightlifting and softball practice, she is on softball team What is your current living situation?: I presently have a place to live Problems where you live: no known problems Problems where you live details: NO KNOWN PROBLEMS In the past 12 months, utilities in danger of being shut off: no In past 12 months, lack of transportation kept you from medical appts, meetings, work, or getting things needed for daily living: no In the past 12 mos, have been you worried that your food would run out before you had money to buy more?: never true In the past 12 mos, the food you bought just didn't last and you didn't have money to buy more?: never true Highest level of school completed/degree received: some college, no degree Smoking Status: Never smoker Do you use any of these nicotine containing products: None Second hand tobacco smoke exposure: No How often do you have a drink containing alcohol: never How often do you have six or more drinks on one occasion: Never AUDIT-C Alcohol total score: 0 Non-prescribed substance use: denies use Caffeine: Yes (ENERGY DRINK/DAILY) How often does anyone, including family, friends and others, physically hurt you : never How often does anyone, including family, friends and others, insult or talk down to you: never How often does anyone, including family, friends and others, threaten you with h arm: never How often does anyone, including family, friends and others, scream or curse at you: never Little interest or pleasure in doing things: not at all Feeling down, depressed, or hopeless: not at all service: No Exam Narrative: Exam Narrative: Vital signs as noted above. In general, an alert, well-appearing patient. Looks comfortable, breathing easily. Head: Normocephalic, atraumatic. Eyes: Pupils are equal reactive. Extraocular movements are full. Conjunctivae are normal. ENT: Mucous membranes are moist. Throat is normal. Neck: Supple without lymphadenopathy. Heart: Regular rate and rhythm. No murmur or rub. Lungs: Clear bilaterally. No increased work of breathing, crackles or wheezes. Chest wall nontender to palpation. Abdomen: Soft and nontender. No organomegaly. Extremities: Well perfused. No edema. No calf tenderness. Pulses intact. Neurologic: Patient is alert and oriented to person and place. Speech is fluent. Face is symmetric. Moves all extremities equally. Affect: Normal. Skin: Warm and dry. Well perfused. Const: Vital Signs, click to edit/add: Vital Signs - 24 hr 06/16/24 01:26 Temperature 98.4 F Pulse Rate [Pulse Oximeter] 79 Respiratory Rate 16 Blood Pressure [Ri ght Upper Arm] 136/86 Pulse Oximetry 98 Oxygen Delivery Me thod Room Air Documenting provider has reviewed patient's vital signs: yes Course Course ED Course: EKG done here shows a normal sinus rhythm, ventricular rate of 71 beats per minute. I do not see evidence of widespread ST elevation, there is a suggestion of some ST depression primarily in leads V4 V5 V6, though this may be more early repolarization. She does not have an S1 Q3 T3. PA and lateral chest by my review are normal without evidence of pneumothorax, infiltrate or other abnormalities. Final radiology read is pending. I did look with the ultrasound, I do not see any evidence of pericardial effusion. Diagnostic considerations would be pericarditis, pneumonia, chest wall pain, shingles, myocarditis, pulmonary embolism, esophageal spasm or GERD. She can be ruled out for PE by PERC criteria. She is afebrile, nontoxic, with normal vital signs and a normal ultrasound. EKG is non concerning. She does have a history of rheumatoid arthritis which probably puts are a little higher risk for pericarditis, but at this point I think I would recommend that we just try a nonsteroidal for couple of days and see how she is doing. Reviewed with her if she feels her symptoms are getting worse rather than stable to improving that she should come back. I do not feel this represents acute coronary syndrome given normal EKG, young age, lack of risk factors and resolution of symptoms. Formal radiology read likewise negative for her chest x-ray. Consultations Consultation #1: Patient: JOSH NOVA Facility: [facility] Site . Site : 2004 Study: XRay-Chest 2 VIEWS-06/16/2024 1:59:29 AM Ordering Physician: Suha Burton Final Report: INDICATION: Sternal chest pain. TECHNIQUE: Chest 2 views. COMPARISON: None. FINDINGS: Cardiovascular and mediastinum: Heart size and vasculature are normal in caliber and appearance. Lungs and pleural spaces: No focal consolidation, pleural effusion, or pneumothorax. Bones and soft tissues: Unremarkable for age. IMPRESSION: No evidence of an acute pulmonary process. Dictated by Nicolas Bustos MD @ 06/16/2024 2:05:16 AM Vital Signs Vital signs: Initial Vital Signs Temperature 98.4 F 06/16/24 01:26 Temperature Source Temporal Artery Scan 06/16/24 01:26 Pulse Rate 79 06/16/24 01:26 Pulse Rhythm Regular 06/16/24 01:26 Respiratory Rate 16 06/16/24 01:26 Respiratory Effort Normal, Spontaneous, Non-Labored 06/16/24 01:26 Respiratory Depth Normal 06/16/24 01:26 Respiratory Pattern Normal 06/16/24 01:26 Blood Pressure 136/86 06/16/24 01:26 Blood Pressure Mean 102 06/16/24 01:26 Blood Pressure Position Sitting 06/16/24 01:26 Pulse Oximetry 98 06/16/24 01:26 Oxygen Delivery Method Room Air 06/16/24 01:26 Vital Signs Temperature 98.4 F 06/16/24 01:26 Pulse Rate 79 06/16/24 01:26 Respiratory Rate 16 06/16/24 01:26 Blood Pressure 136/86 06/16/24 01:26 Pulse Oximetry 98 06/16/24 01:26 Oxygen Delivery Method Room Air 06/16/24 01:26 Temperature 98.4 F 06/16/24 01:26 Pulse Rate 79 06/16/24 01:26 Respiratory Rate 16 06/16/24 01:26 Blood Pressure 136/86 06/16/24 01:26 Pulse Oximetry 98 06/16/24 01:26 Oxygen Delivery Method Room Air 06/16/24 01:26 Discharge Plan Discharge Clinical Impression: Chest pain Patient Disposition: Home, Self-Care Condition: Stable Instructions: Noncardiac Chest Pain (ED) Additional Instructions: I would recommend a trial of ibuprofen 400 mg 3 times daily with food for the next 2-3 days. If your symptoms are worsening rather than stable to improving, if you are having worsening shortness of breath, developed fevers, severe uncontrolled pain or other significant changes, return to the emergency department at any time. See your regular clinic if you have persistent symptoms. Prescriptions: No Action methotrexate sodium 2.5 mg tablet 20 mg PO Q7D leucovorin calcium 5 mg tablet 5 mg PO Q7D Lactobacillus acidophilus 0.5 mg (100 million cell) Tablet 1 mg PO TIDWM 90 Days Qty: 180 1RF cefdinir 300 mg capsule 300 mg PO BID 8 Days Qty: 16 0RF Follow Up/Referrals: Provider,Not a Local [Primary Care Provider] - Stand Alone Forms: SecureLinkth Info Instructions
== END 2024-06-16 02:30 | disposition home or self-care (01) ==
PROVIDERS: Emergency Provider Emergency Medicine
DX: R07.9 Chest pain, unspecified (principal)
CPT/HCPCS: 71046; 93005; 99284